=== PATIENT | male | born 1955 | race Caucasian/White ===

== ENCOUNTER 2016-11-27 08:02 | Emergency (ER) | payer MEDICAID ==
[~2016-11-27] VITALS: Ht 177.8 cm; Wt 106.6 kg
[2016-11-27 08:02] VITALS: BP_SYST 158
[~2016-11-27 08:02] MED LIST: LISI-600 PO; LISI10TA5 PO; NOR10 PO; [UNRECOGNIZED DRUG - CODE] TD
--- NOTE | 2016-11-27 08:02 | NUR ---
BROUGHT BACK TO BED #4, TRIAGED AND REPORT GIVEN TO YESSENIA
[2016-11-27] MEDS ORDERED: NACL 0.9% 1,000 ML IV ONE (08:10)
[2016-11-27] MEDS ORDERED: MECLIZINE HCL 25 MG TABLET (ANITVERT) PO ONE (08:15)
[2016-11-27] MEDS ORDERED: ONDANSETRON HCL 4 MG/2 ML VIAL IVP ONE (08:15)
--- NOTE | 2016-11-27 08:40 | NUR ---
Placed on equipment monitor phototypesetting, blood pressure machine and pulse oximeter. To gown for exam. Side rails up.
--- NOTE | 2016-11-27 08:40 | NUR ---
ER at bedside examining patient.
--- NOTE | 2016-11-27 08:40 | NUR ---
PT C/O DIZZY,RIGHT UPPER ABDOMINAL PAIN,HEADACHE FOR 8 DAYS.
[2016-11-27] MEDS ORDERED: PROCHLORPERAZINE EDISYLATE 10 MG/2 ML VIAL IVP ONE (08:45)
[2016-11-27] MEDS ORDERED: KETOROLAC TROMETHAMINE 30 MG VIAL IVP ONE (08:45)
[2016-11-27] MEDS ORDERED: DEXAMETHASONE SOD PHOSPHATE 10 MG/ML VIAL IVP ONE (08:45)
[2016-11-27 08:48] LABS: BASOPHILS % (AUTO) 0.7 % (0.0-2.0); EOSINOPHILS # (AUTO) 0.1 K/uL (0.0-0.4); EOSINOPHILS % (AUTO) 1.8 % (0.0-4.0); HEMATOCRIT 47.6 % (36-54); LYMPHOCYTES # (AUTO) 2.6 K/uL (1.0-5.5); LYMPHOCYTES % (AUTO) 38.2 % (20.5-51.5); MEAN CORPUSCULAR HEMOGLOBIN 31 pg (27-31); MEAN CORPUSCULAR HGB CONC 34 % (32-36); MEAN CORPUSCULAR VOLUME 92 fL (79.0-98.0); MONOCYTES # (AUTO) 0.6 K/uL (0.0-1.0); MONOCYTES % (AUTO) 9.5 % (1.7-9.3); NEUTROPHILS # (AUTO) 3.4 K/uL (1.8-7.7); NEUTROPHILS % (AUTO) 49.8 % (40.0-70.0); PLATELET COUNT (AUTO) 263 K/uL (130-430); RED BLOOD CELL COUNT(AUTO) 5.16 MIL/uL (4.2-6.2); RED CELL DISTRIBUTION WIDTH 17.1 % (9.0-15.0); WHITE BLOOD COUNT (AUTO) 6.7 K/uL (4.8-10.8)
[2016-11-27 08:58] LABS: CREATININE 1.09 mg/dL (0.55-1.30); POTASSIUM 3.8 mmol/L (3.5-5.1)
[2016-11-27 09:07] LABS: ALBUMIN 3.8 g/dL (3.4-4.8); TOTAL BILIRUBIN 0.5 mg/dL (0.0-1.0); TOTAL PROTEIN, SERUM 7.3 g/dL (6.4-8.3)
[2016-11-27 10:05] LABS: BILIRUBIN,URINE NEGATIVE (NEGATIVE); BLOOD, URINE NEGATIVE (NEGATIVE); CLARITY/URINE CLEAR (CLEAR); COLOR,URINE YELLOW (YELLOW); GLUCOSE,URINE NEGATIVE (NEGATIVE); KETONES,URINE NEGATIVE (NEGATIVE); LEUKOCYTE ESTERASE ,URINE NEGATIVE (NEGATIVE); NITRITE, URINE NEGATIVE (NEGATIVE); PH,URINE 7.5 (5.0-8.0); PROTEIN URINE NEGATIVE (NEGATIVE); UROBILINOGEN,URINE 0.2 (0.2-1.0)
--- NOTE | 2016-11-27 11:13 | NUR ---
Patient given written and verbal discharge instructions and verbalizes understanding. ER MD discussed with patient the results and treatment provided. Given copies of tests performed in ER. Patient in stable condition. ID arm band removed. IV catheter removed intact and dressing applied, no active bleeding. Rx of 0 given. Patient educated on pain management and to follow up with PMD. Pain Scale . Opportunity for questions provided and answered.
[2016-11-27 11:15] VITALS: BP_SYST 146
== END 2016-11-27 11:15 | disposition home or self-care (01) ==
LOC: SED 08:02
DX: F41.9 Anxiety disorder, unspecified (principal); H81.10 Benign paroxysmal vertigo, unspecified ear; I10 Essential (primary) hypertension; E11.9 Type 2 diabetes mellitus without complications; Z88.1 Allergy status to other antibiotic agents
CPT/HCPCS: 36415; 80053; 81003; 82150; 83690; 84484; 85025; 93005; 96361; 96374; 96375; 99285; J0780; J1100; J1885; J2405; J7030; J8597

== ENCOUNTER 2016-12-21 14:15 | Emergency (ER) | payer MEDICAID ==
[~2016-12-21] VITALS: Ht 177.8 cm; Wt 108.9 kg
[2016-12-21 14:36] VITALS: BP 153/106; PULSE 72; RESP 16; TEMP 98; O2SAT 99
[2016-12-21 15:10] LABS: BASOPHILS # (AUTO) 0.1 K/uL (0.0-0.2); BASOPHILS % (AUTO) 0.7 % (0.0-2.0); EOSINOPHILS # (AUTO) 0.1 K/uL (0.0-0.4); EOSINOPHILS % (AUTO) 1.3 % (0.0-4.0); HEMOGLOBIN 15.6 g/dL (14.0-18.0); LYMPHOCYTES # (AUTO) 3.1 K/uL (1.0-5.5); LYMPHOCYTES % (AUTO) 38.4 % (20.5-51.5); MEAN CORPUSCULAR HEMOGLOBIN 31 pg (27-31); MEAN CORPUSCULAR HGB CONC 33 % (32-36); MEAN CORPUSCULAR VOLUME 96 fL (79.0-98.0); MONOCYTES # (AUTO) 0.6 K/uL (0.0-1.0); MONOCYTES % (AUTO) 6.9 % (1.7-9.3); NEUTROPHILS # (AUTO) 4.2 K/uL (1.8-7.7); NEUTROPHILS % (AUTO) 52.7 % (40.0-70.0); PLATELET COUNT (AUTO) 287 K/uL (130-430); RED BLOOD CELL COUNT(AUTO) 4.98 MIL/uL (4.2-6.2); RED CELL DISTRIBUTION WIDTH 16.1 % (9.0-15.0); WHITE BLOOD COUNT (AUTO) 8.1 K/uL (4.8-10.8)
[2016-12-21 15:13] LABS: CALCIUM 9.8 mg/dL (8.4-11.0); CREATININE 1.05 mg/dL (0.55-1.30); POTASSIUM 3.4 mmol/L (3.5-5.1)
[2016-12-21 15:16] LABS: BILIRUBIN,URINE NEGATIVE (NEGATIVE); BLOOD, URINE NEGATIVE (NEGATIVE); CLARITY/URINE CLEAR (CLEAR); COLOR,URINE YELLOW (YELLOW); GLUCOSE,URINE NEGATIVE (NEGATIVE); KETONES,URINE NEGATIVE (NEGATIVE); LEUKOCYTE ESTERASE ,URINE NEGATIVE (NEGATIVE); PROTEIN URINE TRACE (NEGATIVE)
[2016-12-21 15:27] LABS: NITRITE, URINE NEGATIVE (NEGATIVE)
[2016-12-21 15:29] LABS: BACTERIA,URINE FEW /HPF (None Seen); MUCUS,URINE None Seen /LPF (None Seen); RBC,URINE NONE SEEN /HPF (0-3); WBC,URINE 0-3 /HPF (0-3)
--- NOTE | 2016-12-21 17:20 | NUR ---
Patient states he is no longer able to wait. LWBS
== END 2016-12-21 17:20 | disposition left against medical advice (07) ==
LOC: SED 14:51
DX: R30.0 Dysuria (principal); I10 Essential (primary) hypertension; E11.9 Type 2 diabetes mellitus without complications; F41.9 Anxiety disorder, unspecified; Z88.1 Allergy status to other antibiotic agents
CPT/HCPCS: 36415; 80048; 81000-TC; 85025; 99281

== ENCOUNTER 2016-12-22 11:39 | Emergency (ER) | payer MEDICAID ==
[~2016-12-22] VITALS: Ht 177.8 cm; Wt 108.9 kg
[2016-12-22 11:45] VITALS: BP 149/90; PULSE 72; RESP 16; TEMP 97.2; O2SAT 96
--- NOTE | 2016-12-22 11:49 | NUR ---
Patient to ER bed 7 to gown for evaluation. Side rails up. Report given to Chana LYLE.
--- NOTE | 2016-12-22 11:50 | NUR ---
Dr. Mcdaniels at bedside examining the pt.
--- NOTE | 2016-12-22 11:55 | NUR ---
Pt. to ER AAOx4 pressented from home C/O urinary frequency, burning sensation while urinartion 05/11 bilat flank pain, states he was here yesterday however LWBS, sattes he is here for the same reason, he was Dx with UTI, was taking pyridium and Ibuprofen for pain, ran out of his meds 2 days ago, here to get the UTI treated
[2016-12-22 12:08] LABS: BILIRUBIN,URINE NEGATIVE (NEGATIVE); BLOOD, URINE NEGATIVE (NEGATIVE); CLARITY/URINE CLEAR (CLEAR); COLOR,URINE YELLOW (YELLOW); GLUCOSE,URINE NEGATIVE (NEGATIVE); KETONES,URINE NEGATIVE (NEGATIVE); LEUKOCYTE ESTERASE ,URINE NEGATIVE (NEGATIVE); NITRITE, URINE NEGATIVE (NEGATIVE); PH,URINE 8.5 (5.0-8.0); PROTEIN URINE NEGATIVE (NEGATIVE); UROBILINOGEN,URINE 0.2 (0.2-1.0)
[2016-12-22 12:19] LABS: BASOPHILS # (AUTO) 0.1 K/uL (0.0-0.2); BASOPHILS % (AUTO) 0.6 % (0.0-2.0); EOSINOPHILS # (AUTO) 0.1 K/uL (0.0-0.4); EOSINOPHILS % (AUTO) 1.4 % (0.0-4.0); HEMATOCRIT 47.9 % (36-54); HEMOGLOBIN 15.6 g/dL (14.0-18.0); LYMPHOCYTES # (AUTO) 2.5 K/uL (1.0-5.5); LYMPHOCYTES % (AUTO) 29.8 % (20.5-51.5); MEAN CORPUSCULAR HEMOGLOBIN 32 pg (27-31); MEAN CORPUSCULAR HGB CONC 33 % (32-36); MEAN CORPUSCULAR VOLUME 97 fL (79.0-98.0); MONOCYTES # (AUTO) 0.5 K/uL (0.0-1.0); MONOCYTES % (AUTO) 6.4 % (1.7-9.3); NEUTROPHILS # (AUTO) 5.2 K/uL (1.8-7.7); NEUTROPHILS % (AUTO) 61.8 % (40.0-70.0); PLATELET COUNT (AUTO) 277 K/uL (130-430); RED BLOOD CELL COUNT(AUTO) 4.95 MIL/uL (4.2-6.2); RED CELL DISTRIBUTION WIDTH 15.7 % (9.0-15.0); WHITE BLOOD COUNT (AUTO) 8.4 K/uL (4.8-10.8)
[2016-12-22 12:23] LABS: CALCIUM 9.3 mg/dL (8.4-11.0); CREATININE 0.97 mg/dL (0.55-1.30); POTASSIUM 3.5 mmol/L (3.5-5.1)
[2016-12-22 12:29] LABS: ALBUMIN 3.7 g/dL (3.4-4.8); TOTAL BILIRUBIN 0.5 mg/dL (0.0-1.0); TOTAL PROTEIN, SERUM 7.3 g/dL (6.4-8.3)
[2016-12-22 12:50] VITALS: BP 140/85; PULSE 70; RESP 16; TEMP 97.6; O2SAT 98
--- NOTE | 2016-12-22 12:50 | NUR ---
Patient given written and verbal discharge instructions and verbalizes understanding. ER MD discussed with patient the results and treatment provided. Patient in stable condition. ID arm band removed. Rx of Doxycycline and Pyridium given. Patient educated on pain management and to follow up with PMD in 2 days. Opportunity for questions provided and answered.
== END 2016-12-22 12:50 | disposition home or self-care (01) ==
LOC: SED 11:39
DX: R30.0 Dysuria (principal); R10.9 Unspecified abdominal pain; R35.0 Frequency of micturition; I10 Essential (primary) hypertension; E11.9 Type 2 diabetes mellitus without complications; F41.9 Anxiety disorder, unspecified; Z88.1 Allergy status to other antibiotic agents
CPT/HCPCS: 36415; 80053; 81003; 85025; 99284

== ENCOUNTER 2017-02-13 20:27 | Emergency (ER) | payer MEDICAID ==
[~2017-02-13] VITALS: Ht 180.3 cm; Wt 114.3 kg
[2017-02-13 20:30] VITALS: BP_SYST 139
--- NOTE | 2017-02-13 20:30 | NUR ---
Placed in room 8 . Placed on mechanical project engineer, blood pressure machine and pulse oximeter. To gown for exam. Side rails up. Report given to Chana LYLE.
--- NOTE | 2017-02-13 20:42 | NUR ---
Pt .to ER AAOx4 presented from home c/o palpitation, states that household stress might be the cause of these on and off palpitations, states he had just finished working out at the gym went home and felt palpitations, denies SOB denies Chest Pain states H/A mild 4/10 intermittent, clear speech follows commands
--- NOTE | 2017-02-13 20:45 | NUR ---
Dr. Overton at bedside examining the pt.
[2017-02-13 21:23] LABS: BASOPHILS % (AUTO) 0.5 % (0.0-2.0); EOSINOPHILS # (AUTO) 0.1 K/uL (0.0-0.4); EOSINOPHILS % (AUTO) 0.8 % (0.0-4.0); HEMATOCRIT 46.2 % (36-54); HEMOGLOBIN 15.4 g/dL (14.0-18.0); LYMPHOCYTES # (AUTO) 2.5 K/uL (1.0-5.5); LYMPHOCYTES % (AUTO) 35.7 % (20.5-51.5); MEAN CORPUSCULAR HEMOGLOBIN 32 pg (27-31); MEAN CORPUSCULAR HGB CONC 33 % (32-36); MEAN CORPUSCULAR VOLUME 95 fL (79.0-98.0); MONOCYTES # (AUTO) 0.5 K/uL (0.0-1.0); MONOCYTES % (AUTO) 7.5 % (1.7-9.3); NEUTROPHILS % (AUTO) 55.5 % (40.0-70.0); PLATELET COUNT (AUTO) 232 K/uL (130-430); RED BLOOD CELL COUNT(AUTO) 4.86 MIL/uL (4.2-6.2); RED CELL DISTRIBUTION WIDTH 13.1 % (9.0-15.0); WHITE BLOOD COUNT (AUTO) 7.1 K/uL (4.8-10.8)
[2017-02-13 21:35] LABS: CALCIUM 9.8 mg/dL (8.4-11.0); CREATININE 1.08 mg/dL (0.55-1.30)
[2017-02-13 21:43] LABS: ALBUMIN 3.5 g/dL (3.4-4.8); TOTAL BILIRUBIN 0.6 mg/dL (0.0-1.0); TOTAL PROTEIN, SERUM 6.9 g/dL (6.4-8.3)
--- NOTE | 2017-02-13 22:01 | NUR ---
notified of marixa D dimer no change in orders at this time
[2017-02-13 22:05] VITALS: BP_SYST 128
--- NOTE | 2017-02-13 22:05 | NUR ---
Patient given written and verbal discharge instructions and verbalizes understanding. ER MD Dr. Overton discussed with patient the results and treatment provided. Patient in stable condition. ID arm band removed. Rx of klonopin given. Patient educated on pain management and to follow up with PMD. Pain Scale 0/10 Opportunity for questions provided and answered.
== END 2017-02-13 22:05 | disposition home or self-care (01) ==
LOC: SED 20:27
DX: F41.9 Anxiety disorder, unspecified (principal); R06.4 Hyperventilation; I10 Essential (primary) hypertension; E11.9 Type 2 diabetes mellitus without complications; Z88.2 Allergy status to sulfonamides; Z88.1 Allergy status to other antibiotic agents
CPT/HCPCS: 36415; 71010; 80053; 82550-TC; 83880; 84484; 85025; 85379; 93005; 99285

== ENCOUNTER 2017-07-03 09:47 | Emergency (ER) | payer MEDICAID ==
[~2017-07-03] VITALS: Ht 175.3 cm; Wt 108.0 kg
[2017-07-03 09:47] VITALS: BP_SYST 161
[2017-07-03] MEDS ORDERED: IOHEXOL 100 ML IV ONE (10:17)
[2017-07-03 10:44] LABS: BASOPHILS # (AUTO) 0.1 K/uL (0.0-0.2); BASOPHILS % (AUTO) 0.9 % (0.0-2.0); EOSINOPHILS # (AUTO) 0.1 K/uL (0.0-0.4); EOSINOPHILS % (AUTO) 1.2 % (0.0-4.0); HEMATOCRIT 48.3 % (36-54); HEMOGLOBIN 15.5 g/dL (14.0-18.0); LYMPHOCYTES # (AUTO) 2.5 K/uL (1.0-5.5); LYMPHOCYTES % (AUTO) 35.6 % (20.5-51.5); MEAN CORPUSCULAR HEMOGLOBIN 30 pg (27-31); MEAN CORPUSCULAR HGB CONC 32 % (32-36); MEAN CORPUSCULAR VOLUME 93 fL (79.0-98.0); MONOCYTES # (AUTO) 0.7 K/uL (0.0-1.0); MONOCYTES % (AUTO) 9.9 % (1.7-9.3); NEUTROPHILS # (AUTO) 3.7 K/uL (1.8-7.7); NEUTROPHILS % (AUTO) 52.4 % (40.0-70.0); PLATELET COUNT (AUTO) 277 K/uL (130-430); RED BLOOD CELL COUNT(AUTO) 5.22 MIL/uL (4.2-6.2); RED CELL DISTRIBUTION WIDTH 16.8 % (9.0-15.0); WHITE BLOOD COUNT (AUTO) 7.1 K/uL (4.8-10.8)
[2017-07-03 10:59] LABS: CALCIUM 9.5 mg/dL (8.4-11.0); CREATININE 0.85 mg/dL (0.55-1.30); POTASSIUM 3.6 mmol/L (3.5-5.1)
[2017-07-03 11:03] LABS: ALBUMIN 3.8 g/dL (3.4-4.8); TOTAL BILIRUBIN 0.7 mg/dL (0.0-1.0)
[2017-07-03 12:14] VITALS: BP_SYST 145
== END 2017-07-03 12:12 | disposition home or self-care (01) ==
LOC: SED 09:47
DX: J02.9 Acute pharyngitis, unspecified (principal); R51 Headache; E11.9 Type 2 diabetes mellitus without complications; I10 Essential (primary) hypertension; Z88.2 Allergy status to sulfonamides; Z88.8 Allergy status to other drugs, medicaments and biological substances; Z79.899 Other long term (current) drug therapy
CPT/HCPCS: 36415; 70491; 80053; 83690; 85025; 99285; Q9967

== ENCOUNTER 2017-10-06 14:33 | Emergency (ER) | payer MEDICAID ==
[~2017-10-06] VITALS: Ht 177.8 cm; Wt 112.0 kg
[2017-10-06 15:26] VITALS: BP_SYST 129
--- NOTE | 2017-10-06 15:39 | NUR ---
Patient to ER bed 8 to gown for evaluation. Side rails up. Report given to Christian LYLE.
--- NOTE | 2017-10-06 15:40 | NUR ---
Patient to ER via triage with c/o abdominal pain, abdominal cramps, nausea, and green stools. Patient reports that pain started x 2 weeks ago. Patient is awake, alert and oriented in no acute distress. Patient able to ambulate to room with slow, steady gait in no acute distress. Awaiting evaluation by ER MD, will continue to observe and assess.
[2017-10-06] MEDS ORDERED: PIPERACILLIN/TAZO 3.38 GM in NS 50 ML IV ONE (15:45)
[2017-10-06] MEDS ORDERED: PIPERACILLIN/TAZOBACTAM 3.375 GM/VIAL (ZOSYN) IV ONE (15:54)
--- NOTE | 2017-10-06 15:55 | NUR ---
Patient to CT scan via wheelchair in stable condition.
[2017-10-06 16:03] LABS: BILIRUBIN,URINE NEGATIVE (NEGATIVE); BLOOD, URINE NEGATIVE (NEGATIVE); CLARITY/URINE CLEAR (CLEAR); COLOR,URINE YELLOW (YELLOW); GLUCOSE,URINE NEGATIVE (NEGATIVE); KETONES,URINE 1+ (NEGATIVE); LEUKOCYTE ESTERASE ,URINE NEGATIVE (NEGATIVE); NITRITE, URINE NEGATIVE (NEGATIVE); PH,URINE 6.5 (5.0-8.0); PROTEIN URINE TRACE (NEGATIVE); UROBILINOGEN,URINE 0.2 (0.2-1.0)
--- NOTE | 2017-10-06 16:05 | NUR ---
Patient back from CT scan in stable condition via wheelchair.
[2017-10-06 16:06] LABS: BASOPHILS # (AUTO) 0.1 K/uL (0.0-0.2); BASOPHILS % (AUTO) 1.3 % (0.0-2.0); EOSINOPHILS # (AUTO) 0.1 K/uL (0.0-0.4); EOSINOPHILS % (AUTO) 1.1 % (0.0-4.0); HEMATOCRIT 49.3 % (36-54); HEMOGLOBIN 16.4 g/dL (14.0-18.0); LYMPHOCYTES # (AUTO) 1.6 K/uL (1.0-5.5); LYMPHOCYTES % (AUTO) 21.3 % (20.5-51.5); MEAN CORPUSCULAR HEMOGLOBIN 32 pg (27-31); MEAN CORPUSCULAR HGB CONC 33 % (32-36); MEAN CORPUSCULAR VOLUME 96 fL (79.0-98.0); MONOCYTES # (AUTO) 0.9 K/uL (0.0-1.0); MONOCYTES % (AUTO) 11.3 % (1.7-9.3); NEUTROPHILS # (AUTO) 4.9 K/uL (1.8-7.7); PLATELET COUNT (AUTO) 290 K/uL (130-430); RED BLOOD CELL COUNT(AUTO) 5.14 MIL/uL (4.2-6.2); RED CELL DISTRIBUTION WIDTH 18.4 % (9.0-15.0); WHITE BLOOD COUNT (AUTO) 7.6 K/uL (4.8-10.8)
[2017-10-06 16:17] LABS: CALCIUM 10.3 mg/dL (8.4-11.0); CREATININE 1.01 mg/dL (0.55-1.30)
[2017-10-06 16:18] LABS: PROTHROMBIN TIME 10.2 SECS (9.5-12.5)
[2017-10-06 16:21] LABS: ALBUMIN 4.1 g/dL (3.4-4.8); TOTAL BILIRUBIN 0.4 mg/dL (0.0-1.0)
[2017-10-06] MEDS ORDERED: DIPHENHYDRAMINE INJ 50 MG/ML VIAL IVP ONE (16:30)
[2017-10-06] MEDS ORDERED: MORPHINE SULFATE 10 MG/ML VIAL IVP ONE (16:30)
[2017-10-06 17:35] VITALS: BP_SYST 130
--- NOTE | 2017-10-06 17:35 | NUR ---
Patient given written and verbal discharge instructions and verbalizes understanding. ER MD discussed with patient the results and treatment provided. Patient in stable condition. ID arm band removed. IV catheter removed intact and dressing applied, no active bleeding. Rx of Xanax, Lomotil, Levaquin, [place] given. Patient educated on pain management and to follow up with PMD. Pain Scale 2. Opportunity for questions provided and answered. Patient left ER ambulating with slow, steady gait in no acute distress. No adverse reaction noted to medication. Patient to wait in waiting room, for friend who will give patient a ride home.
== END 2017-10-06 17:35 | disposition home or self-care (01) ==
LOC: SED 14:33
DX: K57.92 Diverticulitis of intestine, part unspecified, without perforation or abscess without bleeding (principal); E11.9 Type 2 diabetes mellitus without complications; I10 Essential (primary) hypertension; Z88.1 Allergy status to other antibiotic agents; Z88.8 Allergy status to other drugs, medicaments and biological substances
CPT/HCPCS: 36415; 71045; 74176; 80053; 81003; 83605; 83690; 85025; 85610; 87040; 93005; 96365; 96375; 99285; G0482; J1200; J2270; J2543

== ENCOUNTER 2017-10-26 12:55 | Emergency (ER) | payer MEDICAID ==
[~2017-10-26] VITALS: Ht 177.8 cm; Wt 111.6 kg
[2017-10-26 12:55] VITALS: BP_SYST 136
[2017-10-26 14:45] VITALS: BP_SYST 122
== END 2017-10-26 14:45 | disposition home or self-care (01) ==
LOC: SED 12:55
DX: L30.9 Dermatitis, unspecified (principal); F41.9 Anxiety disorder, unspecified; E11.9 Type 2 diabetes mellitus without complications; I10 Essential (primary) hypertension; Z88.2 Allergy status to sulfonamides; Z79.899 Other long term (current) drug therapy
CPT/HCPCS: 99283

== ENCOUNTER 2018-01-04 14:01 | Emergency (ER) | payer MEDICAID ==
[~2018-01-04] VITALS: Ht 177.8 cm; Wt 110.2 kg
[2018-01-04 14:01] VITALS: BP_SYST 142
[2018-01-04] MEDS ORDERED: NACL 0.9% 1,000 ML IV ONE ×2 (14:05→14:15)
[2018-01-04] MEDS ORDERED: ASPIRIN 81 MG TAB.CHEW PO ONE (14:15)
[2018-01-04 14:50] LABS: BASOPHILS # (AUTO) 0.1 K/uL (0.0-0.2); BASOPHILS % (AUTO) 1.1 % (0.0-2.0); EOSINOPHILS # (AUTO) 0.1 K/uL (0.0-0.4); EOSINOPHILS % (AUTO) 2.3 % (0.0-4.0); HEMOGLOBIN 17.2 g/dL (14.0-18.0); LYMPHOCYTES # (AUTO) 1.6 K/uL (1.0-5.5); LYMPHOCYTES % (AUTO) 26.5 % (20.5-51.5); MEAN CORPUSCULAR HEMOGLOBIN 33 pg (27-31); MEAN CORPUSCULAR HGB CONC 34 % (32-36); MEAN CORPUSCULAR VOLUME 97 fL (79.0-98.0); MONOCYTES # (AUTO) 0.7 K/uL (0.0-1.0); NEUTROPHILS # (AUTO) 3.5 K/uL (1.8-7.7); NEUTROPHILS % (AUTO) 58.1 % (40.0-70.0); PLATELET COUNT (AUTO) 235 K/uL (130-430); RED BLOOD CELL COUNT(AUTO) 5.29 MIL/uL (4.2-6.2); RED CELL DISTRIBUTION WIDTH 14.8 % (9.0-15.0)
[2018-01-04 15:05] LABS: PROTHROMBIN TIME 10.2 SECS (9.5-12.5)
[2018-01-04 15:09] LABS: CALCIUM 10.3 mg/dL (8.4-11.0); CREATININE 1.06 mg/dL (0.55-1.30); POTASSIUM 3.6 mmol/L (3.5-5.1)
[2018-01-04 15:13] LABS: ALBUMIN 3.7 g/dL (3.4-4.8); TOTAL BILIRUBIN 0.6 mg/dL (0.0-1.0)
[2018-01-04 15:52] VITALS: BP_SYST 123
== END 2018-01-04 15:52 | disposition home or self-care (01) ==
LOC: SED 14:01
DX: R00.2 Palpitations (principal); F41.1 Generalized anxiety disorder; I10 Essential (primary) hypertension; E11.9 Type 2 diabetes mellitus without complications; Z88.2 Allergy status to sulfonamides; Z88.8 Allergy status to other drugs, medicaments and biological substances
CPT/HCPCS: 36415; 71045; 80053; 82150; 82550; 83690; 84484; 85025; 85610; 85730; 93005; 96360; 99285; J7030

== ENCOUNTER 2018-02-24 15:43 | Emergency (ER) | payer MEDICAID ==
[~2018-02-24] VITALS: Ht 177.8 cm; Wt 111.1 kg
[2018-02-24 15:52] VITALS: BP_SYST 156
[2018-02-24 16:36] LABS: BASOPHILS # (AUTO) 0.1 K/uL (0.0-0.2); BASOPHILS % (AUTO) 1.2 % (0.0-2.0); EOSINOPHILS # (AUTO) 0.3 K/uL (0.0-0.4); EOSINOPHILS % (AUTO) 6.1 % (0.0-4.0); HEMATOCRIT 47.8 % (36-54); HEMOGLOBIN 16.2 g/dL (14.0-18.0); LYMPHOCYTES # (AUTO) 1.5 K/uL (1.0-5.5); LYMPHOCYTES % (AUTO) 29.5 % (20.5-51.5); MEAN CORPUSCULAR HEMOGLOBIN 33 pg (27-31); MEAN CORPUSCULAR HGB CONC 34 % (32-36); MEAN CORPUSCULAR VOLUME 96 fL (79.0-98.0); MONOCYTES # (AUTO) 0.5 K/uL (0.0-1.0); MONOCYTES % (AUTO) 9.6 % (1.7-9.3); NEUTROPHILS # (AUTO) 2.7 K/uL (1.8-7.7); NEUTROPHILS % (AUTO) 53.6 % (40.0-70.0); PLATELET COUNT (AUTO) 265 K/uL (130-430); RED BLOOD CELL COUNT(AUTO) 4.97 MIL/uL (4.2-6.2); RED CELL DISTRIBUTION WIDTH 15.7 % (9.0-15.0); WHITE BLOOD COUNT (AUTO) 5.1 K/uL (4.8-10.8)
[2018-02-24 16:45] LABS: ANION GAP 9 (5-15); CALCIUM 9.2 mg/dL (8.4-11.0); CHLORIDE 96 mmol/L (98-107); CREATININE 0.96 mg/dL (0.55-1.30); GLUCOSE 131 mg/dL (70-99); POTASSIUM 3.5 mmol/L (3.5-5.1); SODIUM SERUM 130 mmol/L (136-145); UREA NITROGEN, BLOOD 16 mg/dL (8-21)
[2018-02-24 16:49] LABS: ALANINE AMINOTRANSFERASE 54 U/L (12-78); ALBUMIN 3.6 g/dL (3.4-4.8); ASPARTATE AMINOTRANSFERASE 43 U/L (10-37); TOTAL BILIRUBIN 0.4 mg/dL (0.0-1.0)
[2018-02-24 16:56] LABS: PROTHROMBIN TIME 9.9 SECS (9.5-12.5)
[2018-02-24 17:01] LABS: ALCOHOL, BLOOD < 3 mg/dL (<10); GFR AFRICAN AMERICAN 101 mL/min (>90)
[2018-02-24 17:16] LABS: BARBITURATE, URINE NEGATIVE (NEG <=200); BENZODIAZEPINE, URINE NEGATIVE (NEG <=150); CANNABINOID, URINE NEGATIVE (NEG <=50); COCAINE, URINE NEGATIVE (NEG <=150); METHAMPHETAMINES SCREEN,URINE NEGATIVE (NEG <=500); OPIATE, URINE NEGATIVE (NEG <=100); PHENCYCLIDINE SCREEN,URINE NEGATIVE (NEG <=25); UR TRICYCLIC ANTIDEPRESSANTS NEGATIVE (NEG <=300); URINE AMPHETAMINE NEGATIVE (NEG <=500); URINE METHADONE NEGATIVE (NEG <=200); URINE OXYCODONE SCREEN NEGATIVE (NEG <=100); URINE PROPOXYPHENE SCREEN NEGATIVE (NEG <=300)
[2018-02-24 17:43] LABS: CKMB RELATIVE INDEX 0.5 (0.0-2.9); CREATINE KINASE MB 2.1 ng/mL (0-3.6)
[2018-02-24 18:45] VITALS: BP_SYST 145
== END 2018-02-24 18:45 | disposition home or self-care (01) ==
LOC: SED 15:43
DX: F41.9 Anxiety disorder, unspecified (principal); T45.0X5A Adverse effect of antiallergic and antiemetic drugs, initial encounter; E11.9 Type 2 diabetes mellitus without complications; I10 Essential (primary) hypertension; Z88.2 Allergy status to sulfonamides; Z88.8 Allergy status to other drugs, medicaments and biological substances; Y92.89 Other specified places as the place of occurrence of the external cause
CPT/HCPCS: 36415; 70450; 71045; 80053; 80307; 82550; 82553; 83880; 84484; 85025; 85610; 85730; 93005; 99285; G0482

== ENCOUNTER 2018-04-27 14:44 | Inpatient (IN) | payer MEDICAID ==
[~2018-04-27] VITALS: Ht 177.8 cm; Wt 112.5 kg
[2018-04-27 14:58] VITALS: BP_SYST 132
[2018-04-27] MEDS ORDERED: ONDANSETRON HCL 4 MG/2 ML VIAL IVP ONE (15:45)
[2018-04-27] MEDS ORDERED: MORPHINE 4 MG/ML INJ. SYRINGE IVP ONE (15:45)
[2018-04-27] MEDS ORDERED: DUTA0.5C PO (15:50)
[2018-04-27] MEDS ORDERED: NOR10 PO (15:50)
[2018-04-27] MEDS ORDERED: ARI1 PO (15:50)
[2018-04-27] MEDS ORDERED: TEST200V32 IM (15:50)
[2018-04-27 16:12] LABS: BILIRUBIN,URINE NEGATIVE (NEGATIVE); BLOOD, URINE NEGATIVE (NEGATIVE); CLARITY/URINE CLEAR (CLEAR); COLOR,URINE YELLOW (YELLOW); GLUCOSE,URINE NEGATIVE (NEGATIVE); KETONES,URINE NEGATIVE (NEGATIVE); LEUKOCYTE ESTERASE ,URINE NEGATIVE (NEGATIVE); NITRITE, URINE NEGATIVE (NEGATIVE); PROTEIN URINE NEGATIVE (NEGATIVE); UROBILINOGEN,URINE 0.2 (0.2-1.0)
[2018-04-27 16:32] LABS: BASOPHILS # (AUTO) 0.1 K/uL (0.0-0.2); BASOPHILS % (AUTO) 1.2 % (0.0-2.0); EOSINOPHILS % (AUTO) 0.2 % (0.0-4.0); HEMATOCRIT 47.5 % (36-54); HEMOGLOBIN 16.8 g/dL (14.0-18.0); LYMPHOCYTES # (AUTO) 1.4 K/uL (1.0-5.5); LYMPHOCYTES % (AUTO) 16.1 % (20.5-51.5); MEAN CORPUSCULAR HEMOGLOBIN 37 pg (27-31); MEAN CORPUSCULAR HGB CONC 35 % (32-36); MEAN CORPUSCULAR VOLUME 106 fL (79.0-98.0); MONOCYTES # (AUTO) 0.8 K/uL (0.0-1.0); MONOCYTES % (AUTO) 9.6 % (1.7-9.3); NEUTROPHILS # (AUTO) 6.6 K/uL (1.8-7.7); NEUTROPHILS % (AUTO) 72.9 % (40.0-70.0); RED BLOOD CELL COUNT(AUTO) 4.49 MIL/uL (4.2-6.2); RED CELL DISTRIBUTION WIDTH 22.5 % (9.0-15.0); WHITE BLOOD COUNT (AUTO) 8.9 K/uL (4.8-10.8)
[2018-04-27 16:36] LABS: CALCIUM 9.1 mg/dL (8.4-11.0); CREATININE 1.1 mg/dL (0.55-1.30); POTASSIUM 3.5 mmol/L (3.5-5.1)
[2018-04-27 16:37] LABS: PLATELET COUNT (AUTO) 263 K/uL (130-430)
[2018-04-27 16:39] LABS: PROTHROMBIN TIME 10.4 SECS (9.5-12.5)
[2018-04-27 16:40] LABS: ALBUMIN 2.7 g/dL (3.4-4.8); TOTAL BILIRUBIN 0.7 mg/dL (0.0-1.0)
[2018-04-27] MEDS ORDERED: HYDROmorphone 1 MG INJ. 1 MG/ML AMPUL IVP ONE (17:30)
[2018-04-27] MEDS ORDERED: ENOXAPARIN SODIUM 120 MG/0.8 ML SYRINGE SUBCUT ONE (17:30)
[2018-04-27 18:35] VITALS: BP_SYST 142
[2018-04-27] MEDS ORDERED: *LOVENOX 1MG/KG Q12H/PHARMACY XX ONE (18:45)
[2018-04-27] MEDS ORDERED: LORA-259 PO (18:54)
[2018-04-27] MEDS ORDERED: ENOXAPARIN SODIUM 100 MG/ML SYRINGE SUBCUT ONE (20:00)
[2018-04-27 20:05] VITALS: BP_SYST 140
[2018-04-27] MEDS ORDERED: ONDANSETRON HCL 4 MG/2 ML VIAL IVP PRN (20:45)
[2018-04-27] MEDS ORDERED: ACETAMINOPHEN 325 MG TABLET PO PRN (20:45)
[2018-04-27] MEDS ORDERED: MORPHINE 2 MG/ML INJ. SYRINGE IVP PRN (21:30)
[2018-04-27] MEDS: MORPHINE 4 MG/ML INJ. SYRINGE IVP PRN (21:58)
[2018-04-27] MEDS ORDERED: LORazepam 1 MG TABLET PO SCH (22:00)
[2018-04-27 23:57] VITALS: BP_SYST 140
[2018-04-28] MEDS: MORPHINE 4 MG/ML INJ. SYRINGE IVP PRN ×2 (02:39→09:10)
[2018-04-28 03:08] VITALS: BP_SYST 151
[2018-04-28 07:15] VITALS: BP_SYST 156
[2018-04-28] MEDS: DUTASTERIDE 0.5 MG CAPSULE (AVODART) PO SCH (09:06)
[2018-04-28] MEDS: amLODIPine BESYLATE 10 MG TABLET PO SCH (09:06)
[2018-04-28] MEDS: ANASTROZOLE 1 MG TABLET (ARIMIDEX) PO SCH (09:06)
[2018-04-28] MEDS: ENOXAPARIN SODIUM 100 MG/ML SYRINGE SUBCUT SCH ×2 (09:08→20:28)
[2018-04-28 12:00] VITALS: BP_SYST 146
[2018-04-28] MEDS: LORazepam 2 MG/ML VIAL IVP PRN (12:03)
[2018-04-28 16:00] VITALS: BP_SYST 144
[2018-04-28] MEDS: MORPHINE 2 MG/ML INJ. SYRINGE IVP PRN (18:59)
[2018-04-28 19:50] VITALS: BP_SYST 127
[2018-04-29] MEDS: LORazepam 2 MG/ML VIAL IVP PRN ×4 (00:04→22:41)
[2018-04-29 00:08] VITALS: BP_SYST 151
[2018-04-29] MEDS: MORPHINE 2 MG/ML INJ. SYRINGE IVP PRN (00:29)
[2018-04-29] MEDS: MORPHINE 4 MG/ML INJ. SYRINGE IVP PRN ×5 (02:24→21:42)
[2018-04-29 08:00] VITALS: BP_SYST 146
[2018-04-29] MEDS: ENOXAPARIN SODIUM 100 MG/ML SYRINGE SUBCUT SCH ×2 (09:00→20:10)
[2018-04-29] MEDS: APIXABAN 2.5 MG TABLET PO SCH ×2 (09:04→20:10)
[2018-04-29] MEDS: amLODIPine BESYLATE 10 MG TABLET PO SCH (09:05)
[2018-04-29] MEDS: DUTASTERIDE 0.5 MG CAPSULE (AVODART) PO SCH (09:07)
[2018-04-29 13:04] VITALS: BP_SYST 153
[2018-04-29 15:52] VITALS: BP_SYST 138
[2018-04-29 20:00] VITALS: BP_SYST 141
[2018-04-30 00:43] VITALS: BP_SYST 150
[2018-04-30] MEDS: MORPHINE 4 MG/ML INJ. SYRINGE IVP PRN ×3 (01:42→12:44)
[2018-04-30] MEDS: LORazepam 2 MG/ML VIAL IVP PRN ×2 (04:59→11:39)
[2018-04-30 06:42] LABS: ALBUMIN 2.2 g/dL (3.4-4.8); CALCIUM 8.4 mg/dL (8.4-11.0); CREATININE 0.97 mg/dL (0.55-1.30); POTASSIUM 3.5 mmol/L (3.5-5.1); TOTAL BILIRUBIN 0.5 mg/dL (0.0-1.0)
[2018-04-30 08:08] LABS: BASOPHILS # (AUTO) 0.1 K/uL (0.0-0.2); BASOPHILS % (AUTO) 1.6 % (0.0-2.0); EOSINOPHILS # (AUTO) 0.2 K/uL (0.0-0.4); EOSINOPHILS % (AUTO) 3.9 % (0.0-4.0); HEMATOCRIT 43.5 % (36-54); HEMOGLOBIN 15.3 g/dL (14.0-18.0); LYMPHOCYTES # (AUTO) 1.2 K/uL (1.0-5.5); LYMPHOCYTES % (AUTO) 24.8 % (20.5-51.5); MEAN CORPUSCULAR HEMOGLOBIN 38 pg (27-31); MEAN CORPUSCULAR HGB CONC 35 % (32-36); MEAN CORPUSCULAR VOLUME 108 fL (79.0-98.0); MONOCYTES # (AUTO) 0.5 K/uL (0.0-1.0); MONOCYTES % (AUTO) 10.7 % (1.7-9.3); PLATELET COUNT (AUTO) 264 K/uL (130-430); RED BLOOD CELL COUNT(AUTO) 4.04 MIL/uL (4.2-6.2); RED CELL DISTRIBUTION WIDTH 22.3 % (9.0-15.0)
[2018-04-30 08:09] VITALS: BP_SYST 152
[2018-04-30] MEDS: DUTASTERIDE 0.5 MG CAPSULE (AVODART) PO SCH (08:27)
[2018-04-30] MEDS: ANASTROZOLE 1 MG TABLET (ARIMIDEX) PO SCH (08:27)
[2018-04-30] MEDS: amLODIPine BESYLATE 10 MG TABLET PO SCH (08:28)
[2018-04-30] MEDS: APIXABAN 2.5 MG TABLET PO SCH (08:29)
[2018-04-30 09:20] VITALS: BP_SYST 152
[2018-04-30 11:06] VITALS: BP_SYST 149
[2018-04-30] MEDS ORDERED: APIX5TAB PO (12:49)
[2018-04-30] MEDS ORDERED: APIX5TAB4 PO (12:52)
[2018-04-30 14:14] VITALS: BP_SYST 149
== END 2018-04-30 15:00 | disposition home or self-care (01) | DRG 197 ==
LOC: SED 14:44 → SMU 17:47
PROVIDERS: ADMIT Internal Medicine Hospice and Palliative Medicine; ATTEND Internal Medicine Hospice and Palliative Medicine
PROC: 5A09357 Assistance with Respiratory Ventilation, Less than 24 Consecutive Hours, Continuous Positive Airway Pressure (ICD-10-PCS; principal; 2018-04-27)
PROC: 5A09457 Assistance with Respiratory Ventilation, 24-96 Consecutive Hours, Continuous Positive Airway Pressure (ICD-10-PCS; 2018-04-28)
DX: I82.431 Acute embolism and thrombosis of right popliteal vein (principal); I82.411 Acute embolism and thrombosis of right femoral vein; E11.9 Type 2 diabetes mellitus without complications; E66.9 Obesity, unspecified; I10 Essential (primary) hypertension; D75.1 Secondary polycythemia; Z96.643 Presence of artificial hip joint, bilateral; F41.9 Anxiety disorder, unspecified; Z68.35 Body mass index [BMI] 35.0-35.9, adult; Z88.2 Allergy status to sulfonamides; Z79.899 Other long term (current) drug therapy; E44.1 Mild protein-calorie malnutrition
CPT/HCPCS: 36415; 73590-TC; 80053; 81003; 82962; 83605; 85025; 85610-TC; 85730-TC; 87040-TC; 93971; 94660; 94760; 96372; 96374; 96375; 99285; J1170; J1650; J2060; J2270; J2405

== ENCOUNTER 2018-05-11 00:30 | Emergency (ER) | payer MEDICAID ==
[~2018-05-11] VITALS: Ht 177.8 cm; Wt 111.1 kg
[~2018-05-11 00:30] MED LIST changes: +APIX5TAB PO; +APIX5TAB4 PO; +ARI1 PO; +DUTA0.5C PO; -LISI-600 PO; -LISI10TA5 PO; +LORA-259 PO; +TEST200V32 IM; -[UNRECOGNIZED DRUG - CODE] TD
[2018-05-11 00:36] VITALS: BP_SYST 153
[2018-05-11] MEDS ORDERED: NACL 0.9% 1,000 ML IV ONE (01:32)
[2018-05-11] MEDS ORDERED: ONDANSETRON HCL 4 MG/2 ML VIAL IVP ONE (01:45)
[2018-05-11] MEDS ORDERED: MORPHINE 4 MG/ML INJ. SYRINGE IVP ONE ×2 (01:45→03:15)
[2018-05-11] MEDS ORDERED: LORazepam 2 MG/ML VIAL (FOR ER USE) IVP ONE ×2 (01:45→03:15)
[2018-05-11] MEDS ORDERED: DIPHENHYDRAMINE INJ 50 MG/ML VIAL IVP ONE ×2 (01:45→03:15)
[2018-05-11] MEDS ORDERED: PANTOPRAZOLE SODIUM 40 MG/VIAL (PROTONIX) IVP ONE (01:45)
[2018-05-11 02:00] LABS: MEAN CORPUSCULAR HGB CONC 34 % (32-36); MEAN CORPUSCULAR VOLUME 106 fL (79.0-98.0)
[2018-05-11 02:19] LABS: HEMATOCRIT 47.4 % (36-54); HEMOGLOBIN 16.3 g/dL (14.0-18.0); MEAN CORPUSCULAR HEMOGLOBIN 36 pg (27-31); RED BLOOD CELL COUNT(AUTO) 4.47 MIL/uL (4.2-6.2); WHITE BLOOD COUNT (AUTO) 4.2 K/uL (4.8-10.8)
[2018-05-11 02:20] LABS: BASOPHILS % (AUTO) 0.8 % (0.0-2.0); EOSINOPHILS % (AUTO) 0.8 % (0.0-4.0); MONOCYTES # (AUTO) 0.4 K/uL (0.0-1.0); MONOCYTES % (AUTO) 8.6 % (1.7-9.3); NEUTROPHILS # (AUTO) 2.8 K/uL (1.8-7.7); NEUTROPHILS % (AUTO) 65.8 % (40.0-70.0); PLATELET COUNT (AUTO) 156 K/uL (130-430); RED CELL DISTRIBUTION WIDTH 21.4 % (9.0-15.0)
[2018-05-11 02:23] LABS: CALCIUM 9.1 mg/dL (8.4-11.0); CREATININE 1.02 mg/dL (0.55-1.30); POTASSIUM 3.2 mmol/L (3.5-5.1)
[2018-05-11 02:27] LABS: ALBUMIN 3.2 g/dL (3.4-4.8); TOTAL BILIRUBIN 1.3 mg/dL (0.0-1.0)
[2018-05-11 02:30] LABS: PROTHROMBIN TIME 9.8 SECS (9.5-12.5)
[2018-05-11 03:13] LABS: BILIRUBIN,URINE NEGATIVE (NEGATIVE); BLOOD, URINE 1+ (NEGATIVE); CLARITY/URINE CLEAR (CLEAR); COLOR,URINE YELLOW (YELLOW); GLUCOSE,URINE NEGATIVE (NEGATIVE); KETONES,URINE NEGATIVE (NEGATIVE); LEUKOCYTE ESTERASE ,URINE NEGATIVE (NEGATIVE); NITRITE, URINE NEGATIVE (NEGATIVE); PROTEIN URINE NEGATIVE (NEGATIVE); UROBILINOGEN,URINE 0.2 (0.2-1.0)
[2018-05-11 03:28] LABS: BACTERIA,URINE None Seen /HPF (None Seen); WBC,URINE NONE SEEN /HPF (0-3)
[2018-05-11 04:27] VITALS: BP_SYST 142
== END 2018-05-11 04:27 | disposition home or self-care (01) ==
LOC: SED 00:30
DX: M79.671 Pain in right foot (principal); I10 Essential (primary) hypertension; E11.9 Type 2 diabetes mellitus without complications; F41.9 Anxiety disorder, unspecified; Z86.718 Personal history of other venous thrombosis and embolism; Z79.899 Other long term (current) drug therapy; Z88.1 Allergy status to other antibiotic agents; Z88.2 Allergy status to sulfonamides
CPT/HCPCS: 36415; 80053; 81000; 83690; 85025; 85610; 85730; 96361; 96374; 96375; 96376; 99284; C9113; J1200; J2060; J2270; J2405; J7030

== ENCOUNTER 2018-05-22 19:16 | Emergency (ER) | payer MEDICAID ==
[~2018-05-22] VITALS: Ht 180.3 cm; Wt 111.1 kg
--- NOTE | 2018-05-22 19:20 | NUR ---
Placed in room 08 . Placed on site monitor, blood pressure machine and pulse oximeter. To gown for exam. Side rails up.
[2018-05-22 19:21] VITALS: BP_SYST 165
--- NOTE | 2018-05-22 19:21 | NUR ---
Patient AOx4, ambulatory, presents to ER with complaint of SOB x1 day. Patient states numbness to bilateral legs, pain to right leg, numbness to right 5th finger, and numbness to left face. Patient also states "I've had 3 vodkas today but I don't think its the vodkas that is causing me to feel this way". Patient states hx of anxiety and HTN. No other symptoms or complaints. Patient speaking in full sentences.
--- NOTE | 2018-05-22 19:22 | NUR ---
# 20 gauge angiocath placed to LAC. Use of asceptic technique. Opsite placed over site. Blood return noted. Blood for lab drawn from site. Flushed with 10 cc of normal saline. No evidence of infiltration noted. Patient tolerated well.
--- NOTE | 2018-05-22 19:23 | NUR ---
Dr Rodriguez at bedside examining patient
[2018-05-22] MEDS ORDERED: NACL 0.9% 1,000 ML IV ONE (20:15)
[2018-05-22 20:26] LABS: BASOPHILS # (AUTO) 0.2 K/uL (0.0-0.2); EOSINOPHILS % (AUTO) 0.4 % (0.0-4.0); MONOCYTES # (AUTO) 0.7 K/uL (0.0-1.0); NEUTROPHILS # (AUTO) 2.9 K/uL (1.8-7.7)
[2018-05-22 20:34] LABS: CALCIUM 9.1 mg/dL (8.4-11.0); CREATININE 0.74 mg/dL (0.55-1.30); POTASSIUM 3.1 mmol/L (3.5-5.1)
[2018-05-22 20:35] LABS: BASOPHILS % (AUTO) 2.6 % (0.0-2.0); HEMATOCRIT 48.3 % (36-54); LYMPHOCYTES # (AUTO) 2.4 K/uL (1.0-5.5); LYMPHOCYTES % (AUTO) 39.4 % (20.5-51.5); MEAN CORPUSCULAR HEMOGLOBIN 36 pg (27-31); MEAN CORPUSCULAR HGB CONC 33 % (32-36); MEAN CORPUSCULAR VOLUME 108 fL (79.0-98.0); MONOCYTES % (AUTO) 10.8 % (1.7-9.3); NEUTROPHILS % (AUTO) 46.8 % (40.0-70.0); RED BLOOD CELL COUNT(AUTO) 4.46 MIL/uL (4.2-6.2); RED CELL DISTRIBUTION WIDTH 19.6 % (9.0-15.0); WHITE BLOOD COUNT (AUTO) 6.2 K/uL (4.8-10.8)
[2018-05-22 20:37] LABS: PLATELET COUNT (AUTO) 313 K/uL (130-430)
[2018-05-22 20:40] LABS: ALBUMIN 3.5 g/dL (3.4-4.8); TOTAL BILIRUBIN 0.5 mg/dL (0.0-1.0)
[2018-05-22] MEDS ORDERED: POTASSIUM CHLORIDE 20 MEQ TAB.PRT.SR PO ONE (20:45)
--- NOTE | 2018-05-22 20:45 | NUR ---
IVF infusing with no s/s of infiltration at this time. Will cont to monitor.
--- NOTE | 2018-05-22 21:00 | NUR ---
No adverse reactions noted after medication administration. Will continue to monitor.
[2018-05-22 21:36] VITALS: BP_SYST 147
--- NOTE | 2018-05-22 21:36 | NUR ---
Patient given written and verbal discharge instructions and verbalizes understanding. ER MD discussed with patient the results and treatment provided. Patient in stable condition. ID arm band removed. IV catheter removed intact and dressing applied, no active bleeding. Rx of Ativan 0.5mg given. Patient educated on pain management and to follow up with PMD. Pain Scale 0/10. Opportunity for questions provided and answered. Medication side effect fact sheet provided.
== END 2018-05-22 21:36 | disposition home or self-care (01) ==
LOC: SED 19:16
DX: F41.9 Anxiety disorder, unspecified (principal); E87.6 Hypokalemia; E11.9 Type 2 diabetes mellitus without complications; I10 Essential (primary) hypertension; Z79.899 Other long term (current) drug therapy; Z88.1 Allergy status to other antibiotic agents; Z88.2 Allergy status to sulfonamides
CPT/HCPCS: 36415; 71045; 80053; 83880; 85025; 99285; J7030; 93005

== ENCOUNTER 2018-06-05 12:51 | Emergency (ER) | payer MEDICAID ==
[~2018-06-05] VITALS: Ht 177.8 cm; Wt 107.5 kg
[2018-06-05 12:51] VITALS: BP_SYST 127
[2018-06-05 13:24] LABS: BASOPHILS # (AUTO) 0.1 K/uL (0.0-0.2); BASOPHILS % (AUTO) 0.9 % (0.0-2.0); EOSINOPHILS # (AUTO) 0.1 K/uL (0.0-0.4); HEMATOCRIT 45.2 % (36-54); HEMOGLOBIN 14.5 g/dL (14.0-18.0); LYMPHOCYTES # (AUTO) 1.7 K/uL (1.0-5.5); LYMPHOCYTES % (AUTO) 29.5 % (20.5-51.5); MEAN CORPUSCULAR HEMOGLOBIN 35 pg (27-31); MEAN CORPUSCULAR HGB CONC 32 % (32-36); MEAN CORPUSCULAR VOLUME 110 fL (79.0-98.0); MONOCYTES # (AUTO) 0.7 K/uL (0.0-1.0); MONOCYTES % (AUTO) 12.1 % (1.7-9.3); NEUTROPHILS # (AUTO) 3.1 K/uL (1.8-7.7); NEUTROPHILS % (AUTO) 56.5 % (40.0-70.0); PLATELET COUNT (AUTO) 291 K/uL (130-430); RED BLOOD CELL COUNT(AUTO) 4.12 MIL/uL (4.2-6.2); WHITE BLOOD COUNT (AUTO) 5.7 K/uL (4.8-10.8)
[2018-06-05 13:55] LABS: POTASSIUM 3.9 mmol/L (3.5-5.1)
[2018-06-05 13:56] LABS: CALCIUM 9.4 mg/dL (8.4-11.0); CREATININE 0.9 mg/dL (0.55-1.30)
[2018-06-05 13:57] LABS: TOTAL BILIRUBIN 0.4 mg/dL (0.0-1.0)
[2018-06-05 13:58] LABS: ALBUMIN 3.3 g/dL (3.4-4.8); URIC ACID 4.5 mg/dL (2.4-7.0)
[2018-06-05 14:57] LABS: C-REACTIVE PROTEIN QUANT 1.3 mg/dL (0-0.5)
[2018-06-05 15:22] VITALS: BP_SYST 136
== END 2018-06-05 15:22 | disposition home or self-care (01) ==
LOC: SED 12:51
DX: I82.401 Acute embolism and thrombosis of unspecified deep veins of right lower extremity (principal); E11.9 Type 2 diabetes mellitus without complications; I10 Essential (primary) hypertension; F41.9 Anxiety disorder, unspecified; Z79.899 Other long term (current) drug therapy; Z88.1 Allergy status to other antibiotic agents; Z88.2 Allergy status to sulfonamides
CPT/HCPCS: 36415; 73590-TC; 80053; 84550-TC; 85025; 86140; 93971; 99285

== ENCOUNTER 2018-06-12 17:08 | Inpatient (IN) | payer MEDICAID ==
[~2018-06-12] VITALS: Ht 180.3 cm; Wt 114.3 kg
[2018-06-12 17:08] VITALS: BP_SYST 143
--- NOTE | 2018-06-12 17:10 | NUR ---
BROUGHT BACK TO BED #7 AND TRIAGED. REPORT GIVEN TO KIRBY/ROXANNA
--- NOTE | 2018-06-12 17:25 | NUR ---
Note undone in ED - 06/13/18 at 0207 by [email or web address] Patient is in complaining of Right sided leg pain, edema, and right Leg is hot to touch and says it is itchy. Patient says that PMD started him on clindamycin however, it can cause him to have diarrhea. PMD said to go to the ER for stronger antibiotics. Patient says he is taking eloquest as a blood thinner. Patient history of high blood pressure. Patient had surgery 3 years ago for his hip. No other complaints/injuries noted. Will continue to monitor. Addendum: 06/12/18 at 1809 by [email or web address] Amendment undone in ED - 06/13/18 at 0207 by [email or web address] Patient is in complaining of Right sided leg pain, edema, and right Leg is hot to touch and says it is itchy. Pt says pain is 7/10. Patient says that PMD started him on clindamycin however, it can cause him to have diarrhea. Pt has been on clindamycin for 10 days. PMD said to go to the ER for stronger antibiotics. Patient says he is taking eloquest as a blood thinner. Patient also says he takes 1mg of lorazepam at bedtime. Patient history of high blood pressure. Patient had surgery 3 years ago for his hip. No other complaints/injuries noted. Will continue to monitor.
--- NOTE | 2018-06-12 17:43 | NUR ---
ER Dr. Reyes at bedside examining patient.
[2018-06-12] MEDS ORDERED: NS 1000 ML IV.SOLN IV ONE (17:45)
[2018-06-12 18:10] LABS: BILIRUBIN,URINE NEGATIVE (NEGATIVE); CLARITY/URINE CLEAR (CLEAR); COLOR,URINE YELLOW (YELLOW); GLUCOSE,URINE NEGATIVE (NEGATIVE); KETONES,URINE NEGATIVE (NEGATIVE); LEUKOCYTE ESTERASE ,URINE NEGATIVE (NEGATIVE); NITRITE, URINE NEGATIVE (NEGATIVE); PH,URINE 5.5 (5.0-8.0); PROTEIN URINE NEGATIVE (NEGATIVE); UROBILINOGEN,URINE 0.2 (0.2-1.0)
[2018-06-12] MEDS ORDERED: MORPHINE 2 MG/ML INJ. SYRINGE IVP ONE (18:15)
[2018-06-12 18:16] LABS: BLOOD, URINE TRACE (NEGATIVE)
[2018-06-12 18:17] LABS: BACTERIA,URINE FEW /HPF (None Seen); RBC,URINE NONE SEEN /HPF (0-3); WBC,URINE 0-3 /HPF (0-3)
--- NOTE | 2018-06-12 18:17 | NUR ---
Patient medicated with morphine IVP and fluids per MD orders. Patient tolerated well. Will cont. to monitor.
[2018-06-12 18:18] LABS: MUCUS,URINE None Seen /LPF (None Seen)
[2018-06-12 18:22] LABS: BASOPHILS # (AUTO) 0.1 K/uL (0.0-0.2); BASOPHILS % (AUTO) 1.2 % (0.0-2.0); EOSINOPHILS # (AUTO) 0.1 K/uL (0.0-0.4); EOSINOPHILS % (AUTO) 2.4 % (0.0-4.0); HEMATOCRIT 43.4 % (36-54); HEMOGLOBIN 14.7 g/dL (14.0-18.0); LYMPHOCYTES # (AUTO) 1.4 K/uL (1.0-5.5); LYMPHOCYTES % (AUTO) 27.2 % (20.5-51.5); MEAN CORPUSCULAR HEMOGLOBIN 37 pg (27-31); MEAN CORPUSCULAR HGB CONC 34 % (32-36); MEAN CORPUSCULAR VOLUME 109 fL (79.0-98.0); MONOCYTES # (AUTO) 0.4 K/uL (0.0-1.0); MONOCYTES % (AUTO) 8.7 % (1.7-9.3); NEUTROPHILS # (AUTO) 3.1 K/uL (1.8-7.7); NEUTROPHILS % (AUTO) 60.5 % (40.0-70.0); PLATELET COUNT (AUTO) 318 K/uL (130-430); RED BLOOD CELL COUNT(AUTO) 3.97 MIL/uL (4.2-6.2); RED CELL DISTRIBUTION WIDTH 16.1 % (9.0-15.0); WHITE BLOOD COUNT (AUTO) 5.1 K/uL (4.8-10.8)
[2018-06-12 18:29] LABS: CALCIUM 9.7 mg/dL (8.4-11.0); CREATININE 1.11 mg/dL (0.55-1.30); POTASSIUM 3.9 mmol/L (3.5-5.1)
[2018-06-12 18:31] LABS: PROTHROMBIN TIME 9.7 SECS (9.5-12.5)
[2018-06-12 18:33] LABS: ALBUMIN 3.3 g/dL (3.4-4.8); TOTAL BILIRUBIN 0.3 mg/dL (0.0-1.0)
--- NOTE | 2018-06-12 19:01 | NUR ---
Patient will be admitted to care of Dr. Velazquez. Admitted to Med surg unit. Will go to room . Belongings list completed. Summary report printed. Report will be given at bedside.
--- NOTE | 2018-06-12 19:02 | NUR ---
Medication reconciliation completed with information provided by Patient. Any prior medication reconciliation on file was reviewed and corrected.
[2018-06-12] MEDS ORDERED: CLINDAMYCIN PHOSPHATE 300 MG/2 ML VIAL IV ONE (19:15)
--- NOTE | 2018-06-12 19:30 | NUR ---
Patient will be admitted to care of Dr. Mendez. Admitted to Med surg unit. Will go to room 108A. Belongings list completed. Summary report printed. Report will be given at bedside to Alitsair LYLE.
--- NOTE | 2018-06-12 19:43 | NUR ---
Transfer to Med surg. Licensed nurse present. IV present no signs or symptoms of infiltration.
--- NOTE | 2018-06-12 19:43 | NUR ---
ADMISSION NOTE Received patient from ER via gurney UNDER THE CARE OF Dr. Mendez. Patient admitted with diagnosis of Right Lower Extremity Cellulitis. Patient is awake, alert, oriented X 4. Patient oriented to hospital room, call light, toileting, pain management and safety-teach back done. Patient informed that his nurse will be Herb LYLE and that his room number is 108A. Call light within reach. Will continue to monitor patient condition.
[2018-06-12 20:10] VITALS: BP_SYST 138
--- NOTE | 2018-06-12 20:10 | NUR ---
OPENING NOTE Bedside report received from admit nurse, Alistair. Patient received lying in bed, HOB raised, AOx4, no s/s of acute distress. Breathing even and unlabored. IVF infusing well, IV site shows no signs of infection or infiltration. Swelling and redness present at right lower extremity, skin intact, no drainage noted, no active bleeding noted. Call light with patient, instructed to call for any assistance, patient verbalized understanding. Bed alarm of per patient's refusal despite being educated its purpose and benefits, will continue to encourage throughout shift. Bed is locked and at lowest position. All needs met at this time. Will continue to monitor.
[2018-06-12 20:25] VITALS: BP_SYST 140
[2018-06-12] MEDS: CLINDAMYCIN 600 MG in D5W 50 ML IV SCH (20:30)
--- NOTE | 2018-06-12 22:00 | NUR ---
NEW IV SITE New IV site initiated at left hand, 22 gauge. Previous IV site was infiltrated, DC'ed at this time, catheter fully intact, no active bleeding noted. Patient tolerated procedure well.
[2018-06-12] MEDS ORDERED: ANASTROZOLE 1 MG TABLET (ARIMIDEX) PO SCH (22:15)
[2018-06-12] MEDS ORDERED: NON-FORMULARY MEDICATION (Testosterone Cypionate 200 MG) IM SCH (22:15)
[2018-06-12] MEDS ORDERED: VANCOMYCIN HCL 1,500 MG in NS 250 ML IV ONE (22:30)
[2018-06-12] MEDS ORDERED: VANCOMYCIN HCL 1000 MG/VIAL IV ONE (22:57)
[2018-06-12] MEDS ORDERED: VANCOMYCIN HCL 500 MG/VIAL IV ONE (22:57)
[2018-06-12 23:00] VITALS: BP_SYST 140
--- NOTE | 2018-06-12 23:10 | NUR ---
Consultation Paged Reason for Consultation: Cellulitis of RT Lower Extremity Was consult called: Y Person who was notified: Chaparrita Consulting Physician: Ashli García Bench Loom Weaver Ordering Physician: Dr. Mendez
[2018-06-12] MEDS: HYDROcodone/ACETAMIN 5-325 MG TAB (NORCO/ VICODIN) PO PRN (23:22)
[2018-06-12] MEDS: LORazepam 1 MG TABLET PO PRN (23:57)
[2018-06-13] VITALS: BP_SYST 140
--- NOTE | 2018-06-13 | NUR ---
ANXIETY/REFUSED CLINDAMYCIN Patient complained of feeling anxious, Ativan to be administered per PRN order. Patient refused to have Clindamycin. Patient stated,"I spoke to the doctor and told him that Clindamycin does not work and it causes me to have diarrhea. He said he will try a different antibiotic". All needs met at this time. Will continue to monitor.
--- NOTE | 2018-06-13 02:00 | NUR ---
ROUNDS Patient in bed resting at this time. No signs of discomfort noted. Chest rise and fall even bilaterally. CPAP machine attached and operating. IVF infusing well. Call light with patient. Will continue to monitor.
[2018-06-13] MEDS: CLINDAMYCIN 600 MG in D5W 50 ML IV SCH ×3 (02:30→14:30)
--- NOTE | 2018-06-13 04:00 | NUR ---
ROUNDS Patient sleeping comfortably. No s/s of acute distress. Breathing even and unlabored. CPAP machine attached and operating. Call light with patient. Will continue to monitor.
--- NOTE | 2018-06-13 05:55 | NUR ---
ROUNDS Patient in bed sleeping comfortably. No signs of discomfort noted. Chest rise and fall even bilaterally. CPAP attached, and operating. Call light with patient. Will continue to monitor.
[2018-06-13 07:24] VITALS: BP_SYST 142
--- NOTE | 2018-06-13 07:33 | NUR ---
CLOSING NOTES Bedside report given to dayshift nurse. Patient in bed sleeping at this time. No s/s of acute distress noted. Breathing even and unlabored. CPAP machine attached and operating. IV site patent, no signs of infiltration or infection. All of patient's needs met throughout shift. Fall and safety precautions maintained throughout shift. Call light with patient.
[2018-06-13] MEDS: HYDROcodone/ACETAMIN 5-325 MG TAB (NORCO/ VICODIN) PO PRN ×2 (07:34→20:52)
[2018-06-13] MEDS: amLODIPine BESYLATE 10 MG TABLET PO SCH (08:24)
[2018-06-13] MEDS: APIXABAN 2.5 MG TABLET PO SCH ×2 (08:24→20:48)
[2018-06-13] MEDS: DUTASTERIDE 0.5 MG CAPSULE (AVODART) PO SCH (08:28)
[2018-06-13] MEDS ORDERED: NON-FORMULARY MEDICATION (Apixaban (Eliquis) 5 MG) PO SCH (09:00)
--- NOTE | 2018-06-13 11:10 | NUR ---
Patient refused for clindamycin IV antibiotic due to side effect diarrhea and the last time it was given to him it is not effective., Dr Dietrich informed, on Vancomycin IV Antibiotic, right leg cellulitis warm to touch with swelling +1 red legs , leg kept elevated to reduce swelling and discomfort.
[2018-06-13 11:27] VITALS: BP_SYST 140
[2018-06-13] MEDS: VANCOMYCIN HCL 1,500 MG in NS 250 ML IV SCH (11:30)
[2018-06-13 15:52] VITALS: BP_SYST 145
--- NOTE | 2018-06-13 16:04 | NUR ---
MD Rounds Seen and examined by DR. Dietrich discussed plan of care medication verbalized understanding.
--- NOTE | 2018-06-13 16:53 | NUR ---
Patient educated not cross legs especially with the affected legs verbalized understanding.
--- NOTE | 2018-06-13 18:53 | NUR ---
Paged Dr. Dietrich, dialed [phone], s/w Dana.
[2018-06-13 19:10] VITALS: BP_SYST 140
--- NOTE | 2018-06-13 19:10 | NUR ---
OPENING NOTE RECEIVED ENDORSEMENT REPORT FROM DAYS SHIFT NURSE LEROY AT BEDSIDE. PT IS AOX4, RESTING IN BED WITH EYES OPEN. CHEST RISE EVEN AND UNLABORED. NO SOB NOTED. NO DISTRESS NOTED. PT DENIES PAIN AT THIS TIME.PT'S IV CLEAN, DRY AND INTACT. PT'S IV ON LEFT AC 22 G, SL. PT ON RA, TOLERATING WELL. PT'S LEG, CLEAN, DRY AND ELEVATED. PT C/O DIARRHEA, PAGED, WAITING FOR CALL BACK. PT ORIENTED TO HOSPITAL ROOM, PT VERBALIZED UNDERSTANDING. PT INSTRUCTED HOW TO USE CALL LIGHT AND ROOM PHONE, PT VERBALIZED UNDERSTANDING. PT INSTRUCTED TO CALL FOR ASSISTANCE, PT REFUSES BED ALARM, PT EDUCATED ON SAFETY PT REPORTS NOT WANTING BED ALARM. SAFETY MEASURES IN PLACE. CALL LIGHT WITHIN REACH, ROOM PHONE WITHIN REACH, BED IN LOWEST POSITION, SIDE RAILS UP X2, BED BRAKES LOCKED, BEDSIDE TABLE WITHIN REACH. NO OTHER NEEDS AT THIS TIME. WILL CONTINUE TO MONITOR PT AND CONTINUE POC.
--- NOTE | 2018-06-13 19:32 | NUR ---
RN ROUNDS RESTING IN BED WITH EYES OPEN. CHEST RISE EVEN AND UNLABORED. NO SOB NOTED. NO DISTRESS NOTED. PT DENIES PAIN AT THIS TIME. PT'S LEG, CLEAN, DRY AND ELEVATED. VITAL SIGNS WNL. NO OTHER NEEDS AT THIS TIME. SAFETY MEASURES IN PLACE. CALL LIGHT WITHIN REACH, ROOM PHONE WITHIN REACH, BED IN LOWEST POSITION, SIDE RAILS UP X2, BED BRAKES LOCKED, BEDSIDE TABLE WITHIN REACH. WILL CONTINUE TO MONITOR PT AND CONTINUE POC.
--- NOTE | 2018-06-13 19:35 | NUR ---
DR. STEEL RETURNED CALL, ORDERED C.DIFF TEST, NO OTHER CHANGE IN ORDERS
--- NOTE | 2018-06-13 19:52 | NUR ---
STOOL SAMPLE COLLECTED AND SENT TO LAB FOR C DIFF R/O
--- NOTE | 2018-06-13 20:51 | NUR ---
RN ROUNDS RESTING IN BED WITH EYES OPEN. CHEST RISE EVEN AND UNLABORED. NO SOB NOTED. NO DISTRESS NOTED. PT DENIES PAIN AT THIS TIME. VITAL SIGNS WNL. SCHEDULED ELIQUIS ADMINISTERED ORDERED. PT REPORTS 6/10 RLE PAIN, PRN 5/325 NORCO ADMISNEIETERD SCHEDULED FOR PAIN, PT TOLERATED WELL. WILL MONITOR MEDICATION EFFECTIVENESS. NO OTHER NEEDS AT THIS TIME. SAFETY MEASURES IN PLACE. CALL LIGHT WITHIN REACH, ROOM PHONE WITHIN REACH, BED IN LOWEST POSITION, SIDE RAILS UP X2, BED BRAKES LOCKED, BEDSIDE TABLE WITHIN REACH. WILL CONTINUE TO MONITOR PT AND CONTINUE POC.
--- NOTE | 2018-06-13 22:50 | NUR ---
RN ROUNDS RESTING IN BED WITH EYES OPEN. CHEST RISE EVEN AND UNLABORED. NO SOB NOTED. NO DISTRESS NOTED. PT DENIES PAIN AT THIS TIME. PT REFUSES BED ALARM. SAFETY MEASURES IN PLACE. CALL LIGHT WITHIN REACH, ROOM PHONE WITHIN REACH, BED IN LOWEST POSITION, SIDE RAILS UP X2, BED BRAKES LOCKED, BEDSIDE TABLE WITHIN REACH. NO OTHER NEEDS AT THIS TIME. WILL CONTINUE TO MONITOR PT AND CONTINUE POC.
[2018-06-14 00:26] VITALS: BP_SYST 133
--- NOTE | 2018-06-14 00:30 | NUR ---
RN ROUNDS PT RESTING IN BED WITH EYES OPEN. CHEST RISE EVEN AND UNLABORED. NO SOB NOTED. NO DISTRESS NOTED. PT DENIES PAIN AT THIS TIME. SAFETY MEASURES IN PLACE. CALL LIGHT WITHIN REACH, ROOM PHONE WITHIN REACH, BED IN LOWEST POSITION, SIDE RAILS UP X2, BED BRAKES LOCKED, BEDSIDE TABLE WITHIN REACH. NO OTHER NEEDS AT THIS TIME. WILL CONTINUE TO MONITOR PT AND CONTINUE POC.
[2018-06-14] MEDS: LORazepam 1 MG TABLET PO PRN ×3 (00:35→21:34)
[2018-06-14] MEDS: VANCOMYCIN HCL 1,500 MG in NS 250 ML IV SCH ×2 (00:35→12:17)
--- NOTE | 2018-06-14 00:35 | NUR ---
RN ROUNDS RESTING IN BED WITH EYES OPEN. CHEST RISE EVEN AND UNLABORED. NO SOB NOTED. NO DISTRESS NOTED. PT DENIES PAIN AT THIS TIME. SCHEDULED VANCOMYCIN ADMINISTERED SCHEDULED. PT REPORTS ANXIETY, PRN ATIVAN ADMINISTERED ORDERED. PT TOLERATED WELL. WILL MONITOR MEDICATION EFFECTIVENESS. NO OTHER NEEDS AT THIS TIME. PT CONTINUES TO REFUSE BED ALARM, BUT REPORTS WILL CALL FOR ASSISTANCE. SAFETY MEASURES IN PLACE. CALL LIGHT WITHIN REACH, ROOM PHONE WITHIN REACH, BED IN LOWEST POSITION, SIDE RAILS UP X2, BED BRAKES LOCKED, BEDSIDE TABLE WITHIN REACH. WILL CONTINUE TO MONITOR PT AND CONTINUE POC.
--- NOTE | 2018-06-14 02:19 | NUR ---
RN ROUNDS PT RESTING IN BED WITH EYES CLOSED. CHEST RISE EVEN AND UNLABORED. NO SOB NOTED. NO DISTRESS NOTED. PT'S LEG, CLEAN, DRY AND ELEVATED. IVF INFUSING WELL. SAFETY MEASURES IN PLACE. NO NEEDS AT THIS TIME. WILL CONTINUE TO MONITOR PT AND CONTINUE POC.
--- NOTE | 2018-06-14 04:20 | NUR ---
RN ROUNDS PT RESTING IN BED WITH EYES CLOSED. CHEST RISE EVEN AND UNLABORED. NO SOB NOTED. NO DISTRESS NOTED. SAFETY MEASURES IN PLACE. CALL LIGHT WITHIN REACH, ROOM PHONE WITHIN REACH, BED IN LOWEST POSITION, SIDE RAILS UP X2, BED BRAKES LOCKED, BEDSIDE TABLE WITHIN REACH. NO NEEDS AT THIS TIME. WILL CONTINUE TO MONITOR PT AND CONTINUE POC.
--- NOTE | 2018-06-14 06:21 | NUR ---
RN ROUNDS PT RESTING IN BED WITH EYES CLOSED. CHEST RISE EVEN AND UNLABORED. NO SOB NOTED. NO DISTRESS NOTED. NO S/S OF PAIN AT THIS TIME. PT'S IVF INFUSING WELL. PT'S LEG, CLEAN, DRY AND ELEVATED. SAFETY MEASURES IN PLACE. NO NEEDS AT THIS TIME. WILL CONTINUE TO MONITOR PT AND CONTINUE POC.
[2018-06-14 06:31] LABS: BASOPHILS # (AUTO) 0.1 K/uL (0.0-0.2); BASOPHILS % (AUTO) 2.8 % (0.0-2.0); EOSINOPHILS # (AUTO) 0.2 K/uL (0.0-0.4); HEMATOCRIT 44.9 % (36-54); HEMOGLOBIN 14.8 g/dL (14.0-18.0); LYMPHOCYTES # (AUTO) 1.4 K/uL (1.0-5.5); MEAN CORPUSCULAR HEMOGLOBIN 36 pg (27-31); MEAN CORPUSCULAR HGB CONC 33 % (32-36); MEAN CORPUSCULAR VOLUME 110 fL (79.0-98.0); MONOCYTES # (AUTO) 0.5 K/uL (0.0-1.0); MONOCYTES % (AUTO) 10.7 % (1.7-9.3); NEUTROPHILS # (AUTO) 2.5 K/uL (1.8-7.7); NEUTROPHILS % (AUTO) 52.5 % (40.0-70.0); PLATELET COUNT (AUTO) 318 K/uL (130-430); RED BLOOD CELL COUNT(AUTO) 4.07 MIL/uL (4.2-6.2); RED CELL DISTRIBUTION WIDTH 15.6 % (9.0-15.0); WHITE BLOOD COUNT (AUTO) 4.7 K/uL (4.8-10.8)
--- NOTE | 2018-06-14 06:57 | NUR ---
CLOSING NOTE WILL ENDORSE PT REPORT TO DAY SHIFT AT BEDSIDE. PT RESTING IN BED WITH EYES OPEN. CHEST RISE EVEN AND UNLABORED. NO SOB NOTED. NO DISTRESS NOTED. PT'S LEG, CLEAN, DRY AND ELEVATED. PT DID NOT C/O DIARRHEA DURING SHIFT. ALL SCHEDULED MEDICATIONS ADMINISTERED ORDERED, PT TOLERATED WELL. ALL NEEDS MET THROUGHOUT SHIFT. NO OTHER NEEDS AT THIS TIME. SAFETY MEASURES IN PLACE. WILL CONTINUE TO MONITOR PT AND CONTINUE POC.
[2018-06-14 07:07] LABS: ALBUMIN 2.9 g/dL (3.4-4.8); CALCIUM 9.3 mg/dL (8.4-11.0); CREATININE 0.92 mg/dL (0.55-1.30); POTASSIUM 3.3 mmol/L (3.5-5.1); TOTAL BILIRUBIN 0.4 mg/dL (0.0-1.0)
--- NOTE | 2018-06-14 07:25 | NUR ---
Initial notes: Patient on bed awake alert and oriented. Stable. Discussed plan of care. Safety measures in placed. Call light within reach. Received report at bedside.
[2018-06-14 08:00] VITALS: BP_SYST 142
[2018-06-14] MEDS: APIXABAN 2.5 MG TABLET PO SCH ×2 (09:03→21:22)
[2018-06-14] MEDS: DUTASTERIDE 0.5 MG CAPSULE (AVODART) PO SCH (09:05)
[2018-06-14] MEDS: amLODIPine BESYLATE 10 MG TABLET PO SCH (09:05)
--- NOTE | 2018-06-14 09:13 | NUR ---
BM: patient verbalized having BM watery 4-5 times a day for a week now. Patient also mentioned he was taking Clindamycin x10 days before and he also said Dr. English aware. Will follow up Dr. English.
[2018-06-14] MEDS: LOPERAMIDE HCL 2 MG CAPSULE PO PRN ×2 (12:06→18:37)
--- NOTE | 2018-06-14 12:07 | NUR ---
rounds: patient just went to the toilet and still having a watery stool. Due meds given.
[2018-06-14 12:13] VITALS: BP_SYST 147
[2018-06-14] MEDS ORDERED: LACTOBACILLUS RHAMNOSUS GG 1 CAP CAPSULE PO ONE (12:15)
[2018-06-14] MEDS ORDERED: SODIUM CHLORIDE 0.65% NASAL SPRAY NS PRN (13:15)
--- NOTE | 2018-06-14 14:51 | NUR ---
rounds: patient on bed resting. on the phone. no distress noted.
[2018-06-14 16:02] VITALS: BP_SYST 149
[2018-06-14] MEDS: SODIUM CHLORIDE 0.65% NASAL SPRAY NS PRN (16:16)
--- NOTE | 2018-06-14 16:19 | NUR ---
rounds: patient sitting on the chair. Talking to the daughter. No distress noted.
[2018-06-14] MEDS: HYDROcodone/ACETAMIN 5-325 MG TAB (NORCO/ VICODIN) PO PRN (18:37)
--- NOTE | 2018-06-14 18:38 | NUR ---
rounds: patient sitting on the chair and having dinner. no distress noted.
--- NOTE | 2018-06-14 19:15 | NUR ---
Opening Notes Received patient in bed AAOx4 and able to verbalize needs. Right lower leg cellulitis noted. Pain of 6/10. IV on the right hand 22 gauge saline lock, clean dry and intact. patient denies and respiratory distress. Bed alarm refused and patient was educated on the risk and benefits regarding the alarm off. Patient acknowledges understanding. Oriented the patient to the room and use of the call light. Safety precautions in place. Will monitor on rounds.
--- NOTE | 2018-06-14 19:39 | NUR ---
closing notes: Patient on bed resting on bed. Stable. Needs attended. Safety measures in placed. Call light within reach. Report given to DARIELA Escobedo.
[2018-06-14 20:00] VITALS: BP_SYST 138
[2018-06-14] MEDS: LACTOBACILLUS RHAMNOSUS GG 1 CAP CAPSULE PO SCH (21:22)
--- NOTE | 2018-06-14 22:15 | NUR ---
2100 medications administered and tolerated well. Patient will wait for pain medication at midnight.
[2018-06-15] MEDS: VANCOMYCIN HCL 1,500 MG in NS 250 ML IV SCH ×2 (00:16→12:00)
[2018-06-15] MEDS: HYDROcodone/ACETAMIN 5-325 MG TAB (NORCO/ VICODIN) PO PRN ×2 (00:17→09:37)
[2018-06-15 00:20] VITALS: BP_SYST 150
--- NOTE | 2018-06-15 00:20 | NUR ---
Patient given norco for pain of 6/10. no respiratory distress.
--- NOTE | 2018-06-15 02:46 | NUR ---
Patient asleep in bed with no distress. Audible breath sounds heard via CPAP.
--- NOTE | 2018-06-15 04:35 | NUR ---
Patient stable with no change in condition.
--- NOTE | 2018-06-15 06:48 | NUR ---
Closing Notes Patient in bed resting. IV site clean and intact with no infiltration or sign of infection, saline lock. No complaints of pain or respiratory distress. All needs have been met and will endorse to oncoming nurse. Safety precautions in place. Call light within reach.
[2018-06-15 08:00] LABS: ALBUMIN 3.1 g/dL (3.4-4.8); CREATININE 0.96 mg/dL (0.55-1.30); POTASSIUM 3.4 mmol/L (3.5-5.1); TOTAL BILIRUBIN 0.3 mg/dL (0.0-1.0)
[2018-06-15 08:09] LABS: HEMATOCRIT 46.8 % (36-54); HEMOGLOBIN 15.5 g/dL (14.0-18.0); MEAN CORPUSCULAR HEMOGLOBIN 37 pg (27-31); MEAN CORPUSCULAR HGB CONC 33 % (32-36); MEAN CORPUSCULAR VOLUME 110 fL (79.0-98.0); PLATELET COUNT (AUTO) 329 K/uL (130-430); RED BLOOD CELL COUNT(AUTO) 4.25 MIL/uL (4.2-6.2); RED CELL DISTRIBUTION WIDTH 15.2 % (9.0-15.0); WHITE BLOOD COUNT (AUTO) 4.8 K/uL (4.8-10.8)
[2018-06-15] MEDS: SODIUM CHLORIDE 0.65% NASAL SPRAY NS PRN (08:22)
[2018-06-15 08:35] VITALS: BP_SYST 153
--- NOTE | 2018-06-15 08:35 | NUR ---
INITIAL ROUNDS Received pt AAOx4, no s/s resp distress, no c/o pain or discomfort. Pt informed that the he is to have an abd ultrasound this morning and not to eat his breakfast. Plan of care for the day reviewed with pt-pt verbalized his understanding. Noted RLE slightly larger that the left. Pt ambulating in the room with steady gait. Pain management, skin and safety discussed-teach back done. Call light within reach.
[2018-06-15] MEDS: LACTOBACILLUS RHAMNOSUS GG 1 CAP CAPSULE PO SCH (09:29)
[2018-06-15] MEDS: DUTASTERIDE 0.5 MG CAPSULE (AVODART) PO SCH (09:30)
[2018-06-15] MEDS: amLODIPine BESYLATE 10 MG TABLET PO SCH (09:30)
[2018-06-15] MEDS: APIXABAN 2.5 MG TABLET PO SCH (09:33)
--- NOTE | 2018-06-15 11:23 | NUR ---
ROUNDS Pt resting quietly with CPAP on, no s/s resp distress, no further c/o pain or discomfort. Needs met, call light within reach.
[2018-06-15 11:30] VITALS: BP_SYST 135
[2018-06-15 11:46] LABS: BAND % (MANUAL) 2 % (0-6); LYMPHOCYTES % (MANUAL) 43 % (20-46)
[2018-06-15 11:47] LABS: BASOPHILS % (MANUAL) 0 % (0-2); EOSINOPHILS % (MANUAL) 5 % (0-7); MONOCYTES % (MANUAL) 13 % (0-11)
[2018-06-15] MEDS: LORazepam 1 MG TABLET PO PRN (11:59)
[2018-06-15] MEDS: LOPERAMIDE HCL 2 MG CAPSULE PO PRN (11:59)
--- NOTE | 2018-06-15 12:00 | NUR ---
ANXIOUS Pt c/o feeling anxious-pt given Ativan as ordered. Pt also c/o diarrhea-given Imodium as ordered. Pt made comfortable in bed and encouraged to relax, discussed slow, deep breathing. Needs met, call light within reach.
--- NOTE | 2018-06-15 14:35 | NUR ---
ROUNDS Pt with no further c/o anxiety. No c/o pain or discomfort. Pt lying in bed with right leg elevated on wedge. Needs met, call light within reach.
[2018-06-15 15:43] VITALS: BP_SYST 154
[2018-06-15 17:53] VITALS: BP_SYST 154
[2018-06-15] MEDS ORDERED: DOXY100T2 PO (18:02)
--- NOTE | 2018-06-15 18:55 | NUR ---
PATIENT DISCHARGED Patient given medication reconciliation form and D/C instructions. Exit Care explained and provided. Patient verbalized his understanding. MD discussed with patient the results and treatment provided. Ambulatory with steady gait for discharge to home. Patient in stable condition, ID band removed. IV catheter removed, intact and dressing applied, no active bleeding. Rx of Doxycycline explained and given to patient. All belongings sent with patient. [facility]
== END 2018-06-15 18:55 | disposition home or self-care (01) | DRG 383 ==
LOC: SED 17:08 → SMU 19:07
PROVIDERS: ADMIT Family Medicine; ATTEND Family Medicine
DX: L03.115 Cellulitis of right lower limb (principal); I82.411 Acute embolism and thrombosis of right femoral vein; I82.431 Acute embolism and thrombosis of right popliteal vein; E11.9 Type 2 diabetes mellitus without complications; N40.0 Benign prostatic hyperplasia without lower urinary tract symptoms; I10 Essential (primary) hypertension; E29.1 Testicular hypofunction; E66.9 Obesity, unspecified; G47.33 Obstructive sleep apnea (adult) (pediatric); I82.441 Acute embolism and thrombosis of right tibial vein; Z96.643 Presence of artificial hip joint, bilateral; F41.9 Anxiety disorder, unspecified; Z68.35 Body mass index [BMI] 35.0-35.9, adult; Z88.2 Allergy status to sulfonamides; Z88.1 Allergy status to other antibiotic agents; Z79.899 Other long term (current) drug therapy
CPT/HCPCS: 36415; 76705; 80053; 81000-TC; 82962; 83605; 85007; 85025; 85027; 85610-TC; 85730-TC; 87040-TC; 87086; 87230-TC; 93971; 94660; 96361; 96374; 99285; J2270; J3370; J3490; J7050; J7060

== ENCOUNTER 2018-08-01 18:55 | Emergency (ER) | payer MEDICAID ==
[~2018-08-01] VITALS: Ht 177.8 cm; Wt 111.1 kg
[~2018-08-01 18:55] MED LIST changes: +DOXY100T2 PO
[2018-08-01 19:02] VITALS: BP_SYST 153
[2018-08-01] MEDS ORDERED: MORPHINE 4 MG/ML INJ. SYRINGE IVP ONE (20:00)
[2018-08-01] MEDS ORDERED: LORazepam 2 MG/ML VIAL (FOR ER USE) IVP ONE (20:00)
[2018-08-01] MEDS ORDERED: APIXABAN 2.5 MG TABLET PO ONE (22:00)
[2018-08-01] MEDS ORDERED: HYDROcodone/ACETAMIN 5-325 MG TAB (NORCO/ VICODIN) PO ONE (22:15)
[2018-08-01 22:44] VITALS: BP_SYST 147
== END 2018-08-01 22:44 | disposition home or self-care (01) ==
LOC: SED 18:55
DX: I82.401 Acute embolism and thrombosis of unspecified deep veins of right lower extremity (principal); F41.9 Anxiety disorder, unspecified; E11.9 Type 2 diabetes mellitus without complications; I10 Essential (primary) hypertension; Z76.0 Encounter for issue of repeat prescription; Z88.2 Allergy status to sulfonamides; Z88.8 Allergy status to other drugs, medicaments and biological substances; Z79.899 Other long term (current) drug therapy
CPT/HCPCS: 93970; 96374; 96375; 99284; J2060; J2270

== ENCOUNTER 2018-08-15 00:37 | Emergency (ER) | payer MEDICAID ==
[~2018-08-15] VITALS: Ht 177.8 cm; Wt 108.9 kg
[2018-08-15 00:38] VITALS: BP_SYST 146
[2018-08-15 01:21] LABS: BASOPHILS # (AUTO) 0.1 K/uL (0.0-0.2); HEMOGLOBIN 16.9 g/dL (14.0-18.0); LYMPHOCYTES # (AUTO) 2.1 K/uL (1.0-5.5); LYMPHOCYTES % (AUTO) 33.7 % (20.5-51.5); MEAN CORPUSCULAR HEMOGLOBIN 34 pg (27-31); MEAN CORPUSCULAR HGB CONC 34 % (32-36); MEAN CORPUSCULAR VOLUME 101 fL (79.0-98.0); MONOCYTES # (AUTO) 0.6 K/uL (0.0-1.0); MONOCYTES % (AUTO) 9.1 % (1.7-9.3); NEUTROPHILS # (AUTO) 3.5 K/uL (1.8-7.7); NEUTROPHILS % (AUTO) 56.2 % (40.0-70.0); PLATELET COUNT (AUTO) 171 K/uL (130-430); RED BLOOD CELL COUNT(AUTO) 4.97 MIL/uL (4.2-6.2); RED CELL DISTRIBUTION WIDTH 15.6 % (9.0-15.0); WHITE BLOOD COUNT (AUTO) 6.3 K/uL (4.8-10.8)
[2018-08-15 01:48] LABS: CALCIUM 8.7 mg/dL (8.4-11.0); CREATININE 1.18 mg/dL (0.55-1.30); POTASSIUM 4.3 mmol/L (3.5-5.1)
[2018-08-15 01:54] LABS: ALBUMIN 3.3 g/dL (3.4-4.8); TOTAL BILIRUBIN 0.7 mg/dL (0.0-1.0)
[2018-08-15] MEDS ORDERED: MORPHINE 4 MG/ML INJ. SYRINGE ONE (02:18)
[2018-08-15] MEDS ORDERED: LORazepam 2 MG/ML VIAL IVP ONE (03:00)
[2018-08-15] MEDS ORDERED: LORazepam 2 MG/ML VIAL (FOR ER USE) ONE (03:18)
[2018-08-15] MEDS ORDERED: ACETAMINOPHEN 500 MG TABLET PO ONE (04:00)
[2018-08-15 06:47] VITALS: BP_SYST 138
== END 2018-08-15 06:47 | disposition home or self-care (01) ==
LOC: SED 00:37
DX: E11.649 Type 2 diabetes mellitus with hypoglycemia without coma (principal); F41.9 Anxiety disorder, unspecified; I10 Essential (primary) hypertension; Z88.2 Allergy status to sulfonamides; Z88.6 Allergy status to analgesic agent; Z79.899 Other long term (current) drug therapy
CPT/HCPCS: 36415; 80053; 82962; 85025; 96374; 99283; J2060; J2270

== ENCOUNTER 2018-08-21 04:40 | Emergency (ER) | payer MEDICAID ==
[~2018-08-21] VITALS: Ht 177.8 cm; Wt 108.9 kg
[2018-08-21 04:55] VITALS: BP_SYST 165
[2018-08-21] MEDS ORDERED: LORazepam 1 MG TABLET PO ONE (05:30)
[2018-08-21 06:36] VITALS: BP_SYST 141
== END 2018-08-21 06:35 | disposition home or self-care (01) ==
LOC: SED 04:40
DX: F41.0 Panic disorder [episodic paroxysmal anxiety] (principal); E11.9 Type 2 diabetes mellitus without complications; I10 Essential (primary) hypertension; Z88.2 Allergy status to sulfonamides; Z88.8 Allergy status to other drugs, medicaments and biological substances; Z79.899 Other long term (current) drug therapy
CPT/HCPCS: 82962; 99283; 99284

== ENCOUNTER 2018-10-12 13:42 | Emergency (ER) | payer MEDICAID ==
[~2018-10-12] VITALS: Ht 177.8 cm; Wt 108.9 kg
[2018-10-12 13:55] VITALS: BP_SYST 135
[2018-10-12 14:40] LABS: BASOPHILS % (AUTO) 0.6 % (0.0-2.0); EOSINOPHILS # (AUTO) 0.1 K/uL (0.0-0.4); EOSINOPHILS % (AUTO) 2.5 % (0.0-4.0); HEMATOCRIT 45.1 % (36-54); HEMOGLOBIN 14.7 g/dL (14.0-18.0); LYMPHOCYTES # (AUTO) 1.9 K/uL (1.0-5.5); LYMPHOCYTES % (AUTO) 36.5 % (20.5-51.5); MEAN CORPUSCULAR HEMOGLOBIN 33 pg (27-31); MEAN CORPUSCULAR HGB CONC 33 % (32-36); MEAN CORPUSCULAR VOLUME 101 fL (79.0-98.0); MONOCYTES # (AUTO) 0.7 K/uL (0.0-1.0); MONOCYTES % (AUTO) 12.9 % (1.7-9.3); NEUTROPHILS # (AUTO) 2.5 K/uL (1.8-7.7); NEUTROPHILS % (AUTO) 47.5 % (40.0-70.0); PLATELET COUNT (AUTO) 257 K/uL (130-430); RED BLOOD CELL COUNT(AUTO) 4.49 MIL/uL (4.2-6.2); RED CELL DISTRIBUTION WIDTH 19.1 % (9.0-15.0); WHITE BLOOD COUNT (AUTO) 5.2 K/uL (4.8-10.8)
[2018-10-12 14:49] LABS: CALCIUM 9.1 mg/dL (8.4-11.0); CREATININE 0.91 mg/dL (0.55-1.30); POTASSIUM 3.7 mmol/L (3.5-5.1)
[2018-10-12 14:50] LABS: PROTHROMBIN TIME 9.8 SECS (9.5-12.5)
[2018-10-12 14:52] LABS: ALBUMIN 3.1 g/dL (3.4-4.8); TOTAL BILIRUBIN 0.3 mg/dL (0.0-1.0)
[2018-10-12 16:09] VITALS: BP_SYST 145
== END 2018-10-12 16:09 | disposition home or self-care (01) ==
LOC: SED 13:42
DX: M54.5 Low back pain (principal); F41.9 Anxiety disorder, unspecified; E11.9 Type 2 diabetes mellitus without complications; I10 Essential (primary) hypertension; Z88.2 Allergy status to sulfonamides; Z88.8 Allergy status to other drugs, medicaments and biological substances; Z79.899 Other long term (current) drug therapy
CPT/HCPCS: 36415; 80053; 81002; 82150-TC; 83690-TC; 85025; 85610-TC; 85730-TC; 99284

== ENCOUNTER 2019-02-01 18:33 | Inpatient (IN) | payer OTHER, MEDICAID ==
[~2019-02-01] VITALS: Ht 177.8 cm; Wt 112.5 kg
[~2019-02-01 18:33] MED LIST changes: +ANAS1TAB51 PO; -ARI1 PO
[2019-02-01 19:07] VITALS: BP_SYST 152
[2019-02-01] MEDS ORDERED: traMADol HCL HCL 50 MG TABLET (ULTRAM) PO ONE (20:00)
[2019-02-01 20:10] LABS: BILIRUBIN,URINE NEGATIVE (NEGATIVE); BLOOD, URINE TRACE (NEGATIVE); CLARITY/URINE CLEAR (CLEAR); COLOR,URINE YELLOW (YELLOW); GLUCOSE,URINE NEGATIVE (NEGATIVE); KETONES,URINE NEGATIVE (NEGATIVE); LEUKOCYTE ESTERASE ,URINE NEGATIVE (NEGATIVE); NITRITE, URINE NEGATIVE (NEGATIVE); PROTEIN URINE NEGATIVE (NEGATIVE); UROBILINOGEN,URINE 0.2 (0.2-1.0)
[2019-02-01 20:16] LABS: BACTERIA,URINE RARE /HPF (None Seen); RBC,URINE 0-3 /HPF (0-3); WBC,URINE 0-3 /HPF (0-3)
[2019-02-01 20:25] LABS: BASOPHILS % (AUTO) 0.8 % (0.0-2.0); EOSINOPHILS # (AUTO) 0.1 K/uL (0.0-0.4); EOSINOPHILS % (AUTO) 1.5 % (0.0-4.0); HEMATOCRIT 50.5 % (36-54); LYMPHOCYTES # (AUTO) 1.8 K/uL (1.0-5.5); MEAN CORPUSCULAR HEMOGLOBIN 31 pg (27-31); MEAN CORPUSCULAR HGB CONC 34 % (32-36); MEAN CORPUSCULAR VOLUME 94 fL (79.0-98.0); MONOCYTES # (AUTO) 0.6 K/uL (0.0-1.0); MONOCYTES % (AUTO) 10.7 % (1.7-9.3); PLATELET COUNT (AUTO) 235 K/uL (130-430); RED CELL DISTRIBUTION WIDTH 14.1 % (9.0-15.0); WHITE BLOOD COUNT (AUTO) 5.5 K/uL (4.8-10.8)
[2019-02-01 20:43] LABS: ALBUMIN 3.4 g/dL (3.4-4.8); CALCIUM 9.4 mg/dL (8.4-11.0); CREATININE 1.03 mg/dL (0.55-1.30); POTASSIUM 3.6 mmol/L (3.5-5.1); TOTAL BILIRUBIN 0.4 mg/dL (0.0-1.0)
[2019-02-01 21:02] LABS: INR 0.9 (0.80-1.20); PROTHROMBIN TIME 9.7 SECS (9.5-12.5)
[2019-02-01] MEDS ORDERED: ENOXAPARIN SODIUM 100 MG/ML SYRINGE SUBCUT ONE (21:45)
[2019-02-01] MEDS ORDERED: NOR10 PO (21:53)
[2019-02-01 22:21] VITALS: BP_SYST 162
[2019-02-01] MEDS ORDERED: GLU500 PO (22:39)
[2019-02-01 23:01] VITALS: BP_SYST 145
[2019-02-02] MEDS ORDERED: MORPHINE 2 MG/ML INJ. SYRINGE IVP PRN (00:15)
[2019-02-02 00:29] VITALS: BP_SYST 139
[2019-02-02] MEDS: MORPHINE 4 MG/ML INJ. SYRINGE IVP PRN ×3 (00:36→15:38)
[2019-02-02 08:25] VITALS: BP_SYST 137
[2019-02-02] MEDS: ENOXAPARIN SODIUM 100 MG/ML SYRINGE SUBCUT SCH ×2 (08:29→20:05)
[2019-02-02 11:30] VITALS: BP_SYST 144
[2019-02-02 15:36] VITALS: BP_SYST 140
[2019-02-02 17:00] VITALS: BP_SYST 137
[2019-02-02 19:56] VITALS: BP_SYST 133
[2019-02-02] MEDS: INSULIN REGULAR, HUMAN 100 UNITS/ML, 10 ML VIAL (humuLIN R) SUBCUT PRN (20:09)
[2019-02-02] MEDS ORDERED: amLODIPine BESYLATE 10 MG TABLET PO ONE (21:00)
[2019-02-02] MEDS ORDERED: amLODIPine BESYLATE 10 MG TABLET PO SCH (21:00)
[2019-02-03 00:04] VITALS: BP_SYST 127
[2019-02-03] MEDS: INSULIN REGULAR, HUMAN 100 UNITS/ML, 10 ML VIAL (humuLIN R) SUBCUT PRN (06:14)
[2019-02-03 07:52] VITALS: BP_SYST 119
[2019-02-03] MEDS: ENOXAPARIN SODIUM 100 MG/ML SYRINGE SUBCUT SCH (08:35)
[2019-02-03 10:36] VITALS: BP_SYST 122
[2019-02-03] MEDS ORDERED: LOVI120 SQ (10:50)
[2019-02-03 11:26] VITALS: BP_SYST 130
== END 2019-02-03 14:00 | disposition home or self-care (01) | DRG 301 ==
LOC: SED 18:33 → SMU 21:46
PROVIDERS: ADMIT Internal Medicine Hospice and Palliative Medicine; ATTEND Internal Medicine Hospice and Palliative Medicine
DX: I82.403 Acute embolism and thrombosis of unspecified deep veins of lower extremity, bilateral (principal); E11.9 Type 2 diabetes mellitus without complications; E29.1 Testicular hypofunction; E66.01 Morbid (severe) obesity due to excess calories; F41.9 Anxiety disorder, unspecified; G47.33 Obstructive sleep apnea (adult) (pediatric); I10 Essential (primary) hypertension; N40.0 Benign prostatic hyperplasia without lower urinary tract symptoms; Z96.643 Presence of artificial hip joint, bilateral; Z88.2 Allergy status to sulfonamides; Z79.01 Long term (current) use of anticoagulants; Z88.8 Allergy status to other drugs, medicaments and biological substances; Z79.899 Other long term (current) drug therapy; Z68.35 Body mass index [BMI] 35.0-35.9, adult
CPT/HCPCS: 36415; 80053; 81000-TC; 82962; 85025; 85379; 85610-TC; 85730-TC; 93005; 93970; 94660; 94760; 96372; 99285; J1650; J1815; J2270

== ENCOUNTER 2019-04-20 20:33 | Emergency (ER) | payer OTHER, MEDICAID ==
[~2019-04-20] VITALS: Ht 177.8 cm; Wt 109.8 kg
[~2019-04-20 20:33] MED LIST changes: -ANAS1TAB51 PO; -APIX5TAB4 PO; -DOXY100T2 PO; -DUTA0.5C PO; +GLU500 PO; +LOVI120 SQ
[2019-04-20 21:10] VITALS: BP_SYST 147
--- NOTE | 2019-04-20 21:10 | NUR ---
Patient to ER bed 06 to gown for evaluation. Side rails up. Report given to DARIELA Le.
--- NOTE | 2019-04-20 21:13 | NUR ---
Pt complains of left lower abdominal pain for the last four days. Pt states he has a black discoloration to the left lower abdominal pain where he injects Lovenox. Pt states he felt nauseous but has not vomited. Pt denies fever or diarrhea. NO other injuries/complaints per patient or noted.
--- NOTE | 2019-04-20 21:16 | NUR ---
Sofía sethi in [facility] - 04/20/19 at 2121 by SDEDBK VIJAYA Mcdaniels at bedside for medical evaluation.
--- NOTE | 2019-04-20 21:17 | NUR ---
ER Dr. Mcdaniels at bedside examining patient.
[2019-04-20] MEDS ORDERED: MORPHINE 4 MG/ML INJ. SYRINGE IVP ONE (21:30)
[2019-04-20] MEDS ORDERED: ASPIRIN 81 MG TAB.CHEW PO ONE (21:30)
[2019-04-20] MEDS ORDERED: ONDANSETRON HCL 4 MG/2 ML VIAL IVP ONE (21:30)
--- NOTE | 2019-04-20 21:37 | NUR ---
Medications were given, pt tolerated well. No adverse reaction, will continue to monitor.
[2019-04-20 22:05] LABS: BASOPHILS % (AUTO) 0.5 % (0.0-2.0); EOSINOPHILS # (AUTO) 0.1 K/uL (0.0-0.4); EOSINOPHILS % (AUTO) 1.3 % (0.0-4.0); HEMATOCRIT 47.3 % (36-54); HEMOGLOBIN 16.1 g/dL (14.0-18.0); LYMPHOCYTES # (AUTO) 1.9 K/uL (1.0-5.5); LYMPHOCYTES % (AUTO) 40.6 % (20.5-51.5); MEAN CORPUSCULAR HEMOGLOBIN 33 pg (27-31); MEAN CORPUSCULAR HGB CONC 34 % (32-36); MEAN CORPUSCULAR VOLUME 98 fL (79.0-98.0); MONOCYTES # (AUTO) 0.5 K/uL (0.0-1.0); MONOCYTES % (AUTO) 10.7 % (1.7-9.3); NEUTROPHILS # (AUTO) 2.1 K/uL (1.8-7.7); NEUTROPHILS % (AUTO) 46.9 % (40.0-70.0); PLATELET COUNT (AUTO) 234 K/uL (130-430); RED BLOOD CELL COUNT(AUTO) 4.84 MIL/uL (4.2-6.2); RED CELL DISTRIBUTION WIDTH 15.6 % (9.0-15.0); WHITE BLOOD COUNT (AUTO) 4.6 K/uL (4.8-10.8)
[2019-04-20 22:08] LABS: BILIRUBIN,URINE NEGATIVE (NEGATIVE); BLOOD, URINE NEGATIVE (NEGATIVE); CLARITY/URINE CLEAR (CLEAR); COLOR,URINE YELLOW (YELLOW); GLUCOSE,URINE NEGATIVE (NEGATIVE); KETONES,URINE NEGATIVE (NEGATIVE); LEUKOCYTE ESTERASE ,URINE NEGATIVE (NEGATIVE); NITRITE, URINE NEGATIVE (NEGATIVE); PROTEIN URINE NEGATIVE (NEGATIVE); UROBILINOGEN,URINE 0.2 (0.2-1.0)
[2019-04-20 22:13] LABS: CALCIUM 9.7 mg/dL (8.4-11.0); CREATININE 1.05 mg/dL (0.55-1.30); POTASSIUM 3.7 mmol/L (3.5-5.1)
[2019-04-20 22:22] LABS: TOTAL BILIRUBIN 0.4 mg/dL (0.0-1.0)
[2019-04-20 22:23] LABS: ALBUMIN 3.4 g/dL (3.4-4.8)
[2019-04-20 22:48] LABS: CKMB RELATIVE INDEX 0.9 (0.0-2.9); CREATINE KINASE MB 2.8 ng/mL (0-3.6)
[2019-04-20 22:58] VITALS: BP_SYST 142
--- NOTE | 2019-04-20 22:58 | NUR ---
Patient given written and verbal discharge instructions and verbalizes understanding. ER MD discussed with patient the results and treatment provided. Patient in stable condition. ID arm band removed. IV catheter removed intact and dressing applied, no active bleeding. Rx of Tylenol with codeine #3 given. Patient educated on pain management and to follow up with PMD. Pain Scale 2/10 tolerable to patient. Opportunity for questions provided and answered. Medication side effect fact sheet provided.
== END 2019-04-20 22:58 | disposition home or self-care (01) ==
LOC: SED 20:33
DX: S30.1XXA Contusion of abdominal wall, initial encounter (principal); F41.9 Anxiety disorder, unspecified; I10 Essential (primary) hypertension; E11.9 Type 2 diabetes mellitus without complications; Z88.2 Allergy status to sulfonamides; Z88.6 Allergy status to analgesic agent; Z79.899 Other long term (current) drug therapy
CPT/HCPCS: 36415; 71045; 80053; 81003; 82550; 82553; 83605; 83690; 84484; 85025; 85610; 85730; 87040; 93005; 96374; 96375; 99284; J2270; J2405

== ENCOUNTER 2019-07-06 11:27 | Emergency (ER) | payer OTHER, MEDICAID ==
[~2019-07-06] VITALS: Ht 180.3 cm; Wt 106.1 kg
[2019-07-06 11:46] VITALS: BP_SYST 130
[2019-07-06] MEDS: traMADol HCL HCL 50 MG TABLET (ULTRAM) PO ONE (16:20)
[2019-07-06 16:44] VITALS: BP_SYST 130
== END 2019-07-06 16:44 | disposition home or self-care (01) ==
LOC: SED 11:27
DX: S39.012A Strain of muscle, fascia and tendon of lower back, initial encounter (principal); K59.00 Constipation, unspecified; I10 Essential (primary) hypertension; E11.9 Type 2 diabetes mellitus without complications; Z88.2 Allergy status to sulfonamides; Z88.8 Allergy status to other drugs, medicaments and biological substances; Z79.84 Long term (current) use of oral hypoglycemic drugs; Z79.899 Other long term (current) drug therapy; X50.9XXA Other and unspecified overexertion or strenuous movements or postures, initial encounter; Y93.89 Activity, other specified; Y92.89 Other specified places as the place of occurrence of the external cause; Y99.8 Other external cause status
CPT/HCPCS: 99284

== ENCOUNTER 2019-08-10 10:41 | Emergency (ER) | payer OTHER, MEDICAID ==
[~2019-08-10] VITALS: Ht 180.3 cm; Wt 104.3 kg
[2019-08-10 11:16] VITALS: BP_SYST 141
--- NOTE | 2019-08-10 11:27 | NUR ---
Patient triaged and placed in waiting room. VSS and patient appears in no acute distress at this time. Accompanied by friend, awaiting available bed, and MD notified of need for MSE.
--- NOTE | 2019-08-10 11:27 | NUR ---
EKG DONE IN TRIAGE
--- NOTE | 2019-08-10 14:30 | NUR ---
Patient to ER bed 04 to gown for evaluation. Side rails up.
--- NOTE | 2019-08-10 14:31 | NUR ---
PT AAOx4 ambulated into ED c/o intermittent uncontrollable hiccups x 3 days s/p drinking vodka which he normally doesn't drink. Pt c/o pain in epigastric region radiating to chest during hiccup episodes. Denies n/v/d. Skin pink dry and warm, breathing even and unlabored. No other injuries/complaints per pt/noted. Will continued to monitor.
--- NOTE | 2019-08-10 14:55 | NUR ---
ER Dr. Pope at bedside examining patient.
[2019-08-10] MEDS ORDERED: ALPRAZolam 0.25 MG TABLET PO ONE (15:00)
[2019-08-10 15:11] VITALS: BP_SYST 141
--- NOTE | 2019-08-10 15:11 | NUR ---
Patient given written and verbal discharge instructions and verbalizes understanding. ER MD discussed with patient the results and treatment provided. Patient in stable condition. ID arm band removed. Rx of sulfacetamied sodium, xanax given. Patient educated on pain management and to follow up with PMD. Pain Scale 0/10. Opportunity for questions provided and answered. Medication side effect fact sheet provided.
== END 2019-08-10 15:11 | disposition home or self-care (01) ==
LOC: SED 10:41
DX: F10.10 Alcohol abuse, uncomplicated (principal); K57.92 Diverticulitis of intestine, part unspecified, without perforation or abscess without bleeding; F41.9 Anxiety disorder, unspecified; R06.6 Hiccough; H10.31 Unspecified acute conjunctivitis, right eye; E11.9 Type 2 diabetes mellitus without complications; I10 Essential (primary) hypertension; K76.0 Fatty (change of) liver, not elsewhere classified; Z79.899 Other long term (current) drug therapy; Z79.2 Long term (current) use of antibiotics; Z79.890 Hormone replacement therapy
CPT/HCPCS: 93005; 99283

== ENCOUNTER 2019-08-27 12:19 | Emergency (ER) | payer OTHER, MEDICAID ==
[~2019-08-27] VITALS: Ht 180.3 cm; Wt 109.3 kg
[2019-08-27 12:34] VITALS: BP_SYST 132
[2019-08-27 13:12] LABS: BASOPHILS # (AUTO) 0.1 K/uL (0.0-0.2); BASOPHILS % (AUTO) 1.3 % (0.0-2.0); EOSINOPHILS # (AUTO) 0.1 K/uL (0.0-0.4); EOSINOPHILS % (AUTO) 2.1 % (0.0-4.0); HEMATOCRIT 48.2 % (36-54); LYMPHOCYTES # (AUTO) 1.9 K/uL (1.0-5.5); LYMPHOCYTES % (AUTO) 36.5 % (20.5-51.5); MEAN CORPUSCULAR HEMOGLOBIN 32 pg (27-31); MEAN CORPUSCULAR HGB CONC 33 % (32-36); MEAN CORPUSCULAR VOLUME 97 fL (79.0-98.0); MONOCYTES # (AUTO) 0.6 K/uL (0.0-1.0); MONOCYTES % (AUTO) 12.2 % (1.7-9.3); NEUTROPHILS # (AUTO) 2.4 K/uL (1.8-7.7); NEUTROPHILS % (AUTO) 47.9 % (40.0-70.0); PLATELET COUNT (AUTO) 260 K/uL (130-430); RED BLOOD CELL COUNT(AUTO) 4.95 MIL/uL (4.2-6.2); RED CELL DISTRIBUTION WIDTH 21.7 % (9.0-15.0); WHITE BLOOD COUNT (AUTO) 5.1 K/uL (4.8-10.8)
[2019-08-27 13:28] LABS: CREATININE 1.05 mg/dL (0.55-1.30); POTASSIUM 4.5 mmol/L (3.5-5.1)
[2019-08-27 13:34] LABS: ALBUMIN 3.5 g/dL (3.4-4.8); TOTAL BILIRUBIN 0.5 mg/dL (0.0-1.0)
[2019-08-27 13:43] LABS: PROTHROMBIN TIME 10.2 SECS (9.5-12.5)
[2019-08-27 13:49] LABS: CALCIUM 8.9 mg/dL (8.4-11.0)
--- NOTE | 2019-08-27 14:28 | NUR ---
Patient to ER bed 2 to gown for evaluation. Side rails up.
--- NOTE | 2019-08-27 14:29 | NUR ---
pt arrives from home w/ c/o abd pain N/V/D for 1 week. Pt had no other c/o at the moment. Will continue to monitor.
--- NOTE | 2019-08-27 14:45 | NUR ---
ER at bedside examining patient.
--- NOTE | 2019-08-27 15:00 | NUR ---
stool sample collected and sent to the lab
[2019-08-27] MEDS ORDERED: KETOROLAC TROMETHAMINE 60 MG/2 ML VIAL IM ONE (15:15)
[2019-08-27] MEDS ORDERED: ONDANSETRON 4 MG ODT TAB PO ONE (15:30)
[2019-08-27 15:39] VITALS: BP_SYST 126
--- NOTE | 2019-08-27 15:43 | NUR ---
Patient given written and verbal discharge instructions and verbalizes understanding. ER MD discussed with patient the results and treatment provided. Patient in stable condition. ID arm band removed. Rx of Lomotil and [place] given. Patient educated on pain management and to follow up with PMD. Pain Scale 0/10. Opportunity for questions provided and answered. Medication side effect fact sheet provided.
== END 2019-08-27 15:43 | disposition home or self-care (01) ==
LOC: SED 12:19
DX: R19.7 Diarrhea, unspecified (principal); R11.10 Vomiting, unspecified; E11.9 Type 2 diabetes mellitus without complications; I10 Essential (primary) hypertension; F41.9 Anxiety disorder, unspecified; Z98.890 Other specified postprocedural states; Z79.899 Other long term (current) drug therapy; Z88.2 Allergy status to sulfonamides; Z88.8 Allergy status to other drugs, medicaments and biological substances
CPT/HCPCS: 36415; 74176; 80053; 81002; 82150; 83605; 83690; 85025; 85610; 85730; 87230; 96372; 99284; J1885; Q0162

== ENCOUNTER 2019-09-02 14:11 | Emergency (ER) | payer OTHER, MEDICAID ==
[~2019-09-02] VITALS: Ht 180.3 cm; Wt 109.3 kg
[2019-09-02 14:42] VITALS: BP_SYST 117
--- NOTE | 2019-09-02 14:52 | NUR ---
Patient triaged and placed in waiting room. VSS and patient appears in no acute distress at this time. Awaiting available bed, and MD notified of need for MSE.
[2019-09-02 15:33] LABS: LYMPHOCYTES # (AUTO) 1.4 K/uL (1.0-5.5); MEAN CORPUSCULAR VOLUME 96 fL (79.0-98.0); NEUTROPHILS # (AUTO) 3.2 K/uL (1.8-7.7)
[2019-09-02 15:35] LABS: BASOPHILS % (AUTO) 0.5 % (0.0-2.0); EOSINOPHILS % (AUTO) 0.2 % (0.0-4.0); HEMATOCRIT 51.1 % (36-54); HEMOGLOBIN 17.2 g/dL (14.0-18.0); LYMPHOCYTES % (AUTO) 25.3 % (20.5-51.5); MEAN CORPUSCULAR HEMOGLOBIN 32 pg (27-31); MEAN CORPUSCULAR HGB CONC 34 % (32-36); MONOCYTES % (AUTO) 17.3 % (1.7-9.3); NEUTROPHILS % (AUTO) 56.7 % (40.0-70.0); PLATELET COUNT (AUTO) 255 K/uL (130-430); RED BLOOD CELL COUNT(AUTO) 5.32 MIL/uL (4.2-6.2); RED CELL DISTRIBUTION WIDTH 21.2 % (9.0-15.0); WHITE BLOOD COUNT (AUTO) 5.7 K/uL (4.8-10.8)
[2019-09-02 15:53] LABS: CALCIUM 9.8 mg/dL (8.4-11.0); POTASSIUM 4.2 mmol/L (3.5-5.1)
[2019-09-02 15:59] LABS: ALBUMIN 3.9 g/dL (3.4-4.8); TOTAL BILIRUBIN 0.4 mg/dL (0.0-1.0)
--- NOTE | 2019-09-02 17:34 | NUR ---
BROUGHT BACK TO BED #4, REPORT GIVEN TO KERRI
[2019-09-02] MEDS ORDERED: NACL 0.9% 1,000 ML IV ONE (17:45)
[2019-09-02] MEDS ORDERED: KETOROLAC TROMETHAMINE 30 MG VIAL IVP ONE (17:45)
[2019-09-02 19:12] LABS: BILIRUBIN,URINE 2+ (NEGATIVE); BLOOD, URINE NEGATIVE (NEGATIVE); GLUCOSE,URINE NEGATIVE (NEGATIVE); KETONES,URINE 1+ (NEGATIVE); LEUKOCYTE ESTERASE ,URINE TRACE (NEGATIVE); NITRITE, URINE POSITIVE (NEGATIVE); PROTEIN URINE 2+ (NEGATIVE)
[2019-09-02 19:14] LABS: CLARITY/URINE HAZY (CLEAR); COLOR,URINE AMBER (YELLOW)
--- NOTE | 2019-09-02 19:18 | NUR ---
PATIENT PRESENTS TO THE ER WITH HX OF LOWER ABDOMIAL PAIN WITH NAUSEA AND DIARRHEA FOR THREE DAYS; NO TRAUMA, NO OTHER REMARKABLE S/S; SEEN BY ERMD AT 1740 AND PLACED IN ROOM #4 ER AT 1730
--- NOTE | 2019-09-02 19:20 | NUR ---
Received report from DARIELA Luevano. Will continue to monitor.
[2019-09-02] MEDS ORDERED: DIPHENOXYLATE HCL/ATROP SULF 2.5 MG TAB PO ONE (19:30)
[2019-09-02] MEDS ORDERED: MORPHINE 4 MG/ML INJ. SYRINGE IVP ONE (19:45)
[2019-09-02 19:57] VITALS: BP_SYST 120
[2019-09-02 20:20] LABS: BACTERIA,URINE FEW /HPF (None Seen); RBC,URINE NONE SEEN /HPF (0-3)
[2019-09-02 20:21] LABS: MUCUS,URINE 1+ /LPF (None Seen)
== END 2019-09-02 19:57 | disposition home or self-care (01) ==
LOC: SED 14:11
DX: K52.9 Noninfective gastroenteritis and colitis, unspecified (principal); R42 Dizziness and giddiness; E11.9 Type 2 diabetes mellitus without complications; I10 Essential (primary) hypertension; F41.9 Anxiety disorder, unspecified; Z88.2 Allergy status to sulfonamides; Z88.8 Allergy status to other drugs, medicaments and biological substances; Z79.899 Other long term (current) drug therapy
CPT/HCPCS: 36415; 80053; 81000; 82962; 83690; 85025; 87086; 96361; 96374; 96375; 99283; J1885; J2270; J7030

== ENCOUNTER 2019-11-02 11:15 | Emergency (ER) | payer OTHER, MEDICAID ==
[~2019-11-02] VITALS: Ht 180.3 cm; Wt 102.5 kg
[2019-11-02 11:33] VITALS: BP_SYST 125
--- NOTE | 2019-11-02 11:44 | NUR ---
Patient to ER bed 2 to gown for evaluation. Side rails up. Report given to Joseph Gonzalez.
--- NOTE | 2019-11-02 11:45 | NUR ---
PT CAME TO ER FOR FACIAL RASH X2 WEEKS, ITCHINESS, BURNING. ON MONITOR VSS AT THIS TIME.
--- NOTE | 2019-11-02 11:50 | NUR ---
ER at bedside examining patient.
[2019-11-02 12:40] VITALS: BP_SYST 125
--- NOTE | 2019-11-02 12:40 | NUR ---
Patient given written and verbal discharge instructions and verbalizes understanding. ER MD discussed with patient the results and treatment provided. Patient in stable condition. ID arm band removed. Rx of BENADRYL AND KETOCON given. Patient educated on pain management and to follow up with PMD. Pain Scale 0/10. Opportunity for questions provided and answered. Medication side effect fact sheet provided.
== END 2019-11-02 12:40 | disposition home or self-care (01) ==
LOC: SED 11:15
DX: L25.9 Unspecified contact dermatitis, unspecified cause (principal); E11.9 Type 2 diabetes mellitus without complications; I10 Essential (primary) hypertension; F41.9 Anxiety disorder, unspecified; K76.0 Fatty (change of) liver, not elsewhere classified; Z79.899 Other long term (current) drug therapy; Z88.2 Allergy status to sulfonamides
CPT/HCPCS: 99283

== ENCOUNTER 2021-01-29 12:22 | Emergency (ER) | payer OTHER, MEDICAID ==
[~2021-01-29] VITALS: Ht 172.7 cm; Wt 95.3 kg
[2021-01-29 13:05] LABS: MEAN CORPUSCULAR HEMOGLOBIN 30 pg (27-31); WHITE BLOOD COUNT (AUTO) 4.1 K/uL (4.8-10.8)
[2021-01-29 13:11] LABS: BASOPHILS % (AUTO) 0.4 % (0.0-2.0); HEMATOCRIT 44.6 % (36-54); HEMOGLOBIN 14.8 g/dL (14.0-18.0); LYMPHOCYTES % (AUTO) 48.9 % (20.5-51.5); MEAN CORPUSCULAR HGB CONC 33 % (32-36); MEAN CORPUSCULAR VOLUME 89 fL (79.0-98.0); MONOCYTES # (AUTO) 0.6 K/uL (0.0-1.0); MONOCYTES % (AUTO) 14.6 % (1.7-9.3); NEUTROPHILS # (AUTO) 1.5 K/uL (1.8-7.7); NEUTROPHILS % (AUTO) 35.1 % (40.0-70.0); PLATELET COUNT (AUTO) 173 K/uL (130-430); RED CELL DISTRIBUTION WIDTH 16.8 % (9.0-15.0)
[2021-01-29 13:13] LABS: CREATININE 0.99 mg/dL (0.55-1.30); POTASSIUM 3.9 mmol/L (3.5-5.1)
[2021-01-29 13:19] LABS: ALBUMIN 3.4 g/dL (3.4-4.8); TOTAL BILIRUBIN 0.5 mg/dL (0.0-1.0)
[2021-01-29] MEDS ORDERED: LORA-259 PO (13:41)
[2021-01-29 13:55] VITALS: BP_SYST 140
== END 2021-01-29 13:55 | disposition home or self-care (01) ==
LOC: SED 12:22
DX: R42 Dizziness and giddiness (principal); I10 Essential (primary) hypertension; E11.9 Type 2 diabetes mellitus without complications; Z88.8 Allergy status to other drugs, medicaments and biological substances; Z79.84 Long term (current) use of oral hypoglycemic drugs; Z79.899 Other long term (current) drug therapy
CPT/HCPCS: 36415; 70450-TC; 76376; 80053; 82465; 83880; 84484; 85025; 93005; 99285

== ENCOUNTER 2021-05-10 09:27 | Emergency (ER) | payer OTHER, MEDICAID ==
[~2021-05-10] VITALS: Ht 180.3 cm; Wt 92.5 kg
[2021-05-10 09:27] VITALS: BP_SYST 136
[2021-05-10 10:25] LABS: BASOPHILS % (AUTO) 0.7 % (0.0-2.0); EOSINOPHILS # (AUTO) 0.3 K/uL (0.0-0.4); EOSINOPHILS % (AUTO) 6.9 % (0.0-4.0); HEMATOCRIT 33.3 % (36-54); HEMOGLOBIN 11.1 g/dL (14.0-18.0); LYMPHOCYTES % (AUTO) 27.5 % (20.5-51.5); MEAN CORPUSCULAR HEMOGLOBIN 32 pg (27-31); MEAN CORPUSCULAR HGB CONC 33 % (32-36); MEAN CORPUSCULAR VOLUME 95 fL (79.0-98.0); MONOCYTES # (AUTO) 0.4 K/uL (0.0-1.0); MONOCYTES % (AUTO) 11.2 % (1.7-9.3); NEUTROPHILS % (AUTO) 53.7 % (40.0-70.0); PLATELET COUNT (AUTO) 146 K/uL (130-430); RED BLOOD CELL COUNT(AUTO) 3.49 MIL/uL (4.2-6.2); RED CELL DISTRIBUTION WIDTH 14.6 % (9.0-15.0); WHITE BLOOD COUNT (AUTO) 3.7 K/uL (4.8-10.8)
[2021-05-10 10:39] LABS: ANION GAP 4 (5-15); CALCIUM 9.9 mg/dL (8.4-11.0); CHLORIDE 102 mmol/L (98-107); CREATININE 1.18 mg/dL (0.55-1.30); GLUCOSE 80 mg/dL (70-99); POTASSIUM 4.5 mmol/L (3.5-5.1); SODIUM SERUM 137 mmol/L (136-145); UREA NITROGEN, BLOOD 20 mg/dL (8-21)
[2021-05-10 10:41] LABS: GFR AFRICAN AMERICAN 79 mL/min (>90); INR 1.2 (0.80-1.20); PROTHROMBIN TIME 12.7 SECS (9.5-12.5)
[2021-05-10 10:45] LABS: ALANINE AMINOTRANSFERASE 62 U/L (12-78); ALBUMIN 3.1 g/dL (3.4-4.8); ASPARTATE AMINOTRANSFERASE 60 U/L (10-37); TOTAL BILIRUBIN 0.3 mg/dL (0.0-1.0)
[2021-05-10 10:46] LABS: ALCOHOL, BLOOD < 3 mg/dL (<10)
[2021-05-10 10:48] LABS: BILIRUBIN,URINE NEGATIVE (NEGATIVE); BLOOD, URINE NEGATIVE (NEGATIVE); CLARITY/URINE CLEAR (CLEAR); COLOR,URINE YELLOW (YELLOW); GLUCOSE,URINE NEGATIVE (NEGATIVE); KETONES,URINE TRACE (NEGATIVE); LEUKOCYTE ESTERASE ,URINE NEGATIVE (NEGATIVE); NITRITE, URINE NEGATIVE (NEGATIVE); PROTEIN URINE TRACE (NEGATIVE); UROBILINOGEN,URINE 0.2 (0.2-1.0)
[2021-05-10 10:56] LABS: BARBITURATE, URINE NEGATIVE (NEG <=200); BENZODIAZEPINE, URINE NEGATIVE (NEG <=150); CANNABINOID, URINE POSITIVE (NEG <=50); COCAINE, URINE NEGATIVE (NEG <=150); METHAMPHETAMINES SCREEN,URINE NEGATIVE (NEG <=500); OPIATE, URINE NEGATIVE (NEG <=100); PHENCYCLIDINE SCREEN,URINE NEGATIVE (NEG <=25); UR TRICYCLIC ANTIDEPRESSANTS NEGATIVE (NEG <=300); URINE AMPHETAMINE NEGATIVE (NEG <=500); URINE METHADONE NEGATIVE (NEG <=200); URINE OXYCODONE SCREEN NEGATIVE (NEG <=100); URINE PROPOXYPHENE SCREEN NEGATIVE (NEG <=300)
[2021-05-10 11:16] VITALS: BP_SYST 136
== END 2021-05-10 11:17 | disposition home or self-care (01) ==
LOC: SED 09:27
DX: R42 Dizziness and giddiness (principal); I10 Essential (primary) hypertension; E11.9 Type 2 diabetes mellitus without complications; Z88.2 Allergy status to sulfonamides; Z88.8 Allergy status to other drugs, medicaments and biological substances; Z79.84 Long term (current) use of oral hypoglycemic drugs; Z79.899 Other long term (current) drug therapy
CPT/HCPCS: 36415; 70450; 71045; 76376; 80053; 80307; 81003; 84484; 85025; 85610; 85730; 93005; 99285; G0482

== ENCOUNTER 2021-05-27 13:05 | Emergency (ER) | payer OTHER, MEDICAID ==
[~2021-05-27] VITALS: Ht 180.3 cm; Wt 92.5 kg
[2021-05-27 13:19] VITALS: BP_SYST 149
[2021-05-27] MEDS ORDERED: ALPR0.5T PO (13:44)
[2021-05-27 13:53] VITALS: BP_SYST 149
== END 2021-05-27 13:54 | disposition home or self-care (01) ==
LOC: SED 13:05
DX: F41.9 Anxiety disorder, unspecified (principal); I10 Essential (primary) hypertension; E11.9 Type 2 diabetes mellitus without complications; Z88.2 Allergy status to sulfonamides; Z88.8 Allergy status to other drugs, medicaments and biological substances; Z79.84 Long term (current) use of oral hypoglycemic drugs; Z79.899 Other long term (current) drug therapy
CPT/HCPCS: 99283

== ENCOUNTER 2021-06-24 13:26 | Emergency (ER) | payer OTHER, MEDICAID ==
[~2021-06-24] VITALS: Ht 180.3 cm; Wt 94.3 kg
[2021-06-24 13:26] VITALS: BP_SYST 128
[~2021-06-24 13:26] MED LIST changes: +ALPR0.5T PO
[2021-06-24 14:11] LABS: EOSINOPHILS # (AUTO) 0.1 K/uL (0.0-0.4); EOSINOPHILS % (AUTO) 4.6 % (0.0-4.0); HEMATOCRIT 31.5 % (36-54); HEMOGLOBIN 10.6 g/dL (14.0-18.0); LYMPHOCYTES # (AUTO) 1.1 K/uL (1.0-5.5); LYMPHOCYTES % (AUTO) 36.7 % (20.5-51.5); MEAN CORPUSCULAR HEMOGLOBIN 31 pg (27-31); MEAN CORPUSCULAR HGB CONC 34 % (32-36); MEAN CORPUSCULAR VOLUME 93 fL (79.0-98.0); MONOCYTES # (AUTO) 0.4 K/uL (0.0-1.0); MONOCYTES % (AUTO) 12.3 % (1.7-9.3); NEUTROPHILS # (AUTO) 1.4 K/uL (1.8-7.7); NEUTROPHILS % (AUTO) 45.4 % (40.0-70.0); PLATELET COUNT (AUTO) 164 K/uL (130-430); RED CELL DISTRIBUTION WIDTH 15.3 % (9.0-15.0); WHITE BLOOD COUNT (AUTO) 3.1 K/uL (4.8-10.8)
[2021-06-24 14:22] LABS: ANION GAP 7 (5-15); CALCIUM 9.2 mg/dL (8.4-11.0); CHLORIDE 103 mmol/L (98-107); CREATININE 1.04 mg/dL (0.55-1.30); GLUCOSE 90 mg/dL (70-99); POTASSIUM 4.3 mmol/L (3.5-5.1); SODIUM SERUM 137 mmol/L (136-145); UREA NITROGEN, BLOOD 14 mg/dL (8-21)
[2021-06-24 14:24] LABS: GFR AFRICAN AMERICAN 92 mL/min (>90)
[2021-06-24 14:28] LABS: ALANINE AMINOTRANSFERASE 48 U/L (12-78); ALBUMIN 2.8 g/dL (3.4-4.8); ASPARTATE AMINOTRANSFERASE 60 U/L (10-37); TOTAL BILIRUBIN 0.3 mg/dL (0.0-1.0)
[2021-06-24 14:29] LABS: ALCOHOL, BLOOD < 3 mg/dL (<10)
[2021-06-24 14:31] LABS: INR 1.2 (0.80-1.20); PROTHROMBIN TIME 12.6 SECS (9.5-12.5)
[2021-06-24 14:36] LABS: ACETONE, SERUM NEGATIVE (NEGATIVE)
[2021-06-24 15:01] LABS: CKMB RELATIVE INDEX 0.3 (0.0-2.9); CREATINE KINASE MB 1.3 ng/mL (0-3.6)
[2021-06-24] MEDS ORDERED: VIS10 PO (15:08)
[2021-06-24 15:23] VITALS: BP_SYST 128
[2021-06-24 15:25] LABS: BILIRUBIN,URINE NEGATIVE (NEGATIVE); BLOOD, URINE NEGATIVE (NEGATIVE); COLOR,URINE YELLOW (YELLOW); GLUCOSE,URINE NEGATIVE (NEGATIVE); KETONES,URINE TRACE (NEGATIVE); LEUKOCYTE ESTERASE ,URINE NEGATIVE (NEGATIVE); NITRITE, URINE NEGATIVE (NEGATIVE); PROTEIN URINE TRACE (NEGATIVE); UROBILINOGEN,URINE 0.2 (0.2-1.0)
[2021-06-24 15:33] LABS: CLARITY/URINE SLIGHTLY HAZY (CLEAR)
[2021-06-24 15:59] LABS: BARBITURATE, URINE NEGATIVE (NEG <=200); BENZODIAZEPINE, URINE NEGATIVE (NEG <=150); CANNABINOID, URINE POSITIVE (NEG <=50); COCAINE, URINE NEGATIVE (NEG <=150); METHAMPHETAMINES SCREEN,URINE NEGATIVE (NEG <=500); OPIATE, URINE NEGATIVE (NEG <=100); PHENCYCLIDINE SCREEN,URINE NEGATIVE (NEG <=25); UR TRICYCLIC ANTIDEPRESSANTS NEGATIVE (NEG <=300); URINE AMPHETAMINE NEGATIVE (NEG <=500); URINE METHADONE NEGATIVE (NEG <=200); URINE OXYCODONE SCREEN NEGATIVE (NEG <=100); URINE PROPOXYPHENE SCREEN NEGATIVE (NEG <=300)
[2021-06-24 16:39] LABS: BACTERIA,URINE FEW /HPF (None Seen); RBC,URINE NONE SEEN /HPF (0-3)
[2021-06-24 16:42] LABS: CALCIUM OXALATE CRYSTALS,UR 0-10 /HPF (None Seen)
[2021-06-24 16:44] LABS: MUCUS,URINE 3+ /LPF (None Seen)
== END 2021-06-24 15:23 | disposition home or self-care (01) ==
LOC: SED 13:26
DX: R53.1 Weakness (principal); F41.9 Anxiety disorder, unspecified; I10 Essential (primary) hypertension; E11.9 Type 2 diabetes mellitus without complications; Z79.899 Other long term (current) drug therapy; Z88.8 Allergy status to other drugs, medicaments and biological substances
CPT/HCPCS: 36415; 71045; 80053; 80307; 81000; 82009; 82550; 82553; 83605; 84484; 85025; 85610; 85730; 93005; 99285; G0482

== ENCOUNTER 2021-07-04 14:00 | Emergency (ER) | payer OTHER, MEDICAID, SELFPAY ==
[~2021-07-04] VITALS: Ht 180.3 cm; Wt 95.3 kg
[2021-07-04 14:00] VITALS: BP_SYST 143
[~2021-07-04 14:00] MED LIST changes: +VIS10 PO
--- NOTE | 2021-07-04 14:00 | NUR ---
BROUGHT BACK TO BED #8 AND TRIAGED. REPORT GIVEN TO CADEN
--- NOTE | 2021-07-04 14:05 | NUR ---
Pt walked in to ER with c/o dizziness and possible adverse reactions to new medications. Pt recently seen here with a full work-up and diagnosed with anxiety. V/S stable, no acute distress noted.
--- NOTE | 2021-07-04 14:21 | NUR ---
ER Dr. Hylton at bedside examining patient.
[2021-07-04] MEDS ORDERED: NACL 0.9% 1,000 ML IV ONE ×2 (14:30→17:30)
[2021-07-04] MEDS ORDERED: ONDANSETRON HCL 4 MG/2 ML VIAL IVP ONE ×2 (14:30→17:30)
--- NOTE | 2021-07-04 14:45 | NUR ---
covid swab performed at bedside and sent to lab
--- NOTE | 2021-07-04 15:04 | NUR ---
Radiology at bedside for CXR.
[2021-07-04 15:22] LABS: CALCIUM 8.1 mg/dL (8.4-11.0); CREATININE 1.39 mg/dL (0.55-1.30); HEMATOCRIT 33.3 % (36-54); HEMOGLOBIN 11.2 g/dL (14.0-18.0); MEAN CORPUSCULAR HEMOGLOBIN 31 pg (27-31); MEAN CORPUSCULAR VOLUME 92 fL (79.0-98.0); POTASSIUM 3.4 mmol/L (3.5-5.1); RED CELL DISTRIBUTION WIDTH 15.7 % (9.0-15.0); WHITE BLOOD COUNT (AUTO) 2.9 K/uL (4.8-10.8)
[2021-07-04] MEDS ORDERED: IOHEXOL 350 mgI/mL, 150 ML INFUS..BTL IV ONE (15:22)
[2021-07-04 15:26] LABS: BASOPHILS % (AUTO) 0.4 % (0.0-2.0); EOSINOPHILS # (AUTO) 0.1 K/uL (0.0-0.4); EOSINOPHILS % (AUTO) 2.5 % (0.0-4.0); LYMPHOCYTES % (AUTO) 34.5 % (20.5-51.5); MEAN CORPUSCULAR HGB CONC 34 % (32-36); MONOCYTES # (AUTO) 0.4 K/uL (0.0-1.0); MONOCYTES % (AUTO) 13.3 % (1.7-9.3); NEUTROPHILS # (AUTO) 1.4 K/uL (1.8-7.7); NEUTROPHILS % (AUTO) 49.3 % (40.0-70.0); PLATELET COUNT (AUTO) 142 K/uL (130-430); RED BLOOD CELL COUNT(AUTO) 3.61 MIL/uL (4.2-6.2)
[2021-07-04 15:27] LABS: TOTAL BILIRUBIN 0.4 mg/dL (0.0-1.0)
[2021-07-04 15:40] LABS: INR 1.1 (0.80-1.20); PROTHROMBIN TIME 11.5 SECS (9.5-12.5)
[2021-07-04] MEDS ORDERED: POTASSIUM CHLORIDE 20 MEQ/PKT PACKET PO ONE (17:30)
[2021-07-04] MEDS ORDERED: LORazepam 1 MG TABLET PO ONE (17:45)
--- NOTE | 2021-07-04 18:59 | NUR ---
Care of patient endorsed to DARIELA [place]. Pt currently resting in bed, no acute distress noted.
[2021-07-04] MEDS ORDERED: ONDA-8 TL (19:22)
[2021-07-04 19:33] LABS: BILIRUBIN,URINE 1+ (NEGATIVE); BLOOD, URINE NEGATIVE (NEGATIVE); CLARITY/URINE CLEAR (CLEAR); COLOR,URINE YELLOW (YELLOW); GLUCOSE,URINE NEGATIVE (NEGATIVE); KETONES,URINE TRACE (NEGATIVE); LEUKOCYTE ESTERASE ,URINE NEGATIVE (NEGATIVE); NITRITE, URINE NEGATIVE (NEGATIVE); PROTEIN URINE 2+ (NEGATIVE); UROBILINOGEN,URINE 0.2 (0.2-1.0)
[2021-07-04 19:42] VITALS: BP_SYST 126
--- NOTE | 2021-07-04 19:42 | NUR ---
Patient given written and verbal discharge instructions and verbalizes understanding. ER MD discussed with patient the results and treatment provided. Patient in stable condition. ID arm band removed. IV catheter removed intact and dressing applied, no active bleeding. Rx of Zofran given. Patient educated on pain management and to follow up with PMD. Pain Scale 0/10 Opportunity for questions provided and answered. Medication side effect fact sheet provided.
== END 2021-07-04 19:42 | disposition home or self-care (01) ==
LOC: SED 14:00
DX: N17.9 Acute kidney failure, unspecified (principal); E87.6 Hypokalemia; R42 Dizziness and giddiness; F41.9 Anxiety disorder, unspecified; I10 Essential (primary) hypertension; E11.9 Type 2 diabetes mellitus without complications; Z88.8 Allergy status to other drugs, medicaments and biological substances; Z79.899 Other long term (current) drug therapy; Z79.84 Long term (current) use of oral hypoglycemic drugs; Z20.822 Contact with and (suspected) exposure to COVID-19
CPT/HCPCS: 36415; 70450; 70496; 71045; 76376; 80053; 81003; 82550; 83690; 84484; 85025; 85610; 85730; 87426; 93005; 96361; 96374; 96376; 99285; J2405; J7030; Q9967